=== PATIENT | male | born 1955 | race Hispanic/Latino ===

== ENCOUNTER 2018-08-15 07:45 | Inpatient (IN) | payer OTHER ==
[2018-08-15 07:56] VITALS: BMI 22.8
[2018-08-15] MEDS ORDERED: Heparin25000 units/250ml 1/2NS 25,000 UNITS/250 ML BAG IV STA (08:01)
[2018-08-15 08:04] LABS: BASO # 0.1 K/uL (0.0-0.2); BASO % 0.3 % (0.0-2.0); EOS % 0.1 % (0.0-4.0); HEMOGLOBIN 12.2 g/dL (12.0-18.0); LYMPH % 5.4 % (20.0-40.0); MEAN CELL VOLUME 86.4 fL (80.0-94.0); MEAN CORPUSCULAR HEMOGLOBIN 29.6 pg (27.0-31.0); MEAN CORPUSCULAR HGB CONC 34.2 g/dL (33.0-37.0); MONO # 1.4 K/uL (0.0-0.8); MONO % 7.6 % (0.0-10.0); NEUT # 15.4 K/uL (1.8-7.0); NEUT % 86.6 % (50.0-75.0); PLATELET COUNT 680 K/uL (130-400); RBC 4.14 Mil/uL (4.40-5.90); WHITE BLOOD COUNT 17.8 K/uL (4.8-10.8)
[2018-08-15 08:14] LABS: INR 1.3; PROTHROMBIN TIME 14.1 SECONDS (9.7-12.2)
[2018-08-15 08:19] LABS: ALB/GLOB RATIO 1.5 (1.0-2.1); ALT/SGPT 41 U/L (21-72); AST/SGOT 52 U/L (17-59); BLOOD UREA NITROGEN 11 mg/dL (9-20); CALCIUM 8.6 mg/dl (8.6-10.4); GFR NON-AFRICAN AMERICAN > 60
--- NOTE | 2018-08-15 08:23 | C.PDOC ---
History Of Present Illness 62 year old male with PMHx of HPT and alcohol use was brought in by EMS notification for chest pain. The pt reports 5/10 non-radiating chest pain associated with SOB which started last night. Pt notes pressure to the chest started last night while drinking at a bar, he went to bed and woke up in the morning still with CP which prompted EMS call. EMS states patient took ASA prior to them arriving. EMS [address] elevations in the inferior lead. Pt denies dizziness, sweating, nausea, vomiting, drug use, smoking, and any other associated symptoms. EKG done in the ED with possibly (??) minimal elevations in inferior leads. Dr. Palomares contacted. NO Code Heart at this time. Chief Complaint (Nursing): Chest Pain History Per: Patient History/Exam Limitations: no limitations Onset/Duration Of Symptoms: Hrs Current Symptoms Are (Timing): Still Present Quality: Pressure, "Pain" Associated Symptoms: denies: Nausea, Diaphoresis Recent travel outside of the [place]: No Past Medical History Reviewed: Historical Data, Nursing Documentation, Vital Signs Vital Signs: Last Vital Signs Temp 98.2 F 08/15/18 07:45 Pulse 84 08/15/18 08:03 Resp 22 08/15/18 08:03 BP 121/77 08/15/18 08:03 Pulse Ox 96 08/15/18 08:03 - Medical History PMH: HTN Denies: HIV, Chronic Kidney Disease Surgical History: Endoscopy - [facility] Procedures INTRODUCTION OF SERUM/TOX/VACCINE INTO MUSCLE, PERC APPROACH (08/30/17) TRANSFUSE NONAUT RED BLOOD CELLS IN PERIPH VEIN, PERC (08/30/17) Family History: States: Unknown Family Hx - Social History Hx Alcohol Use: Yes Hx Substance Use: No - Immunization History Hx Tetanus Toxoid Vaccination: No Hx Influenza Vaccination: Yes Hx Pneumococcal Vaccination: Yes Review Of Systems Except As Marked, All Systems Reviewed And Found Negative. Cardiovascular: Positive for: Chest Pain Respiratory: Positive for: Shortness of Breath Gastrointestinal: Negative for: Nausea, Vomiting Musculoskeletal: Positive for: Other Skin: Negative for: Other ((-) diaphoresis. ) Neurological: Negative for: Dizziness Physical Exam - Physical Exam Appears: Well, Non-toxic, No Acute Distress, Other (calm. cooperative. vital signs within normal limits. ) Skin: Warm, Dry, No Diaphoretic Head: Atraumatic, Normacephalic Eye(s): bilateral: Normal Inspection Oral Mucosa: Moist Neck: Normal ROM, Supple Chest: Symmetrical, No Deformity Cardiovascular: Rhythm Regular, No Murmur Respiratory: Normal Breath Sounds, No Rales, No Rhonchi, No Wheezing Gastrointestinal/Abdominal: Normal Exam, Soft, No Tenderness Extremity: Normal ROM (x4), Other ((+) pitting edema. (normal baseline)) Neurological/Psych: Oriented x3, Normal Speech, Normal Cognition ED Course And Treatment - Laboratory Results Result Diagrams: 08/15/18 07:59 08/15/18 07:59 Lab Results: PT 14.1 SECONDS (9.7-12.2) H 08/15/18 07:59 INR 1.3 08/15/18 07:59 APTT 33 SECONDS (21-34) 08/15/18 07:59 Total Bilirubin 0.7 mg/dL (0.2-1.3) 08/15/18 07:59 AST 52 U/L (17-59) 08/15/18 07:59 ALT 41 U/L (21-72) 08/15/18 07:59 Alkaline Phosphatase 112 U/L (38-126) 08/15/18 07:59 Total Protein 6.6 g/dL (6.3-8.3) 08/15/18 07:59 Albumin 4.0 g/dL (3.5-5.0) 08/15/18 07:59 Globulin 2.6 gm/dL (2.2-3.9) 08/15/18 07:59 Albumin/Globulin Ratio 1.5 (1.0-2.1) 08/15/18 07:59 O2 Sat by Pulse Oximetry: 96 (RA) Pulse Ox Interpretation: Normal Medical Decision Making Medical Decision Making: Initial plan: -Blood sent. -EKG -CXR -Brilinta -Heparin Progress/Update: EKG in the ED: very minimal elevated ST elevations on the inferior lead Dr. Palomares contacted for questionable code heart. As per Dr. Palomares no code heart at this time Repeated EKG at 8:07am: Similar findings, no evolution of further EKG changes EKG compared to 2018 EKG, which did not have minimal ST elevations Dr. Palomares contacted again, decision made to call code heart Hospitalist at bedside, pending transport [place] [facility] Disposition Discussed With : Sandra Palomares - Disposition Disposition: HOSPITALIZED Disposition Time: 08:22 Condition: GUARDED - Clinical Impression Clinical Impression: Chest pain, STEMI (ST elevation myocardial infarction) - Scribe Statement The provider has reviewed the documentation as recorded by the Scribe (Danica Dwyer) Provider Attestation: All medical record entries made by the Scribe were at my direction and personally dictated by me. I have reviewed the chart and agree that the record accurately reflects my personal performance of the history, physical exam, medical decision making, and the department course for this patient. I have also personally directed, reviewed, and agree with the discharge instructions and disposition. Decision To Admit - Pt Status Changed To: Hospital Disposition Of: Observation - InPatient: Physician Admission Certification: I certify that this patient requires 2 or mo re midnights of care for the following reason:: STEMI - . Bed Request Type: ICU Admitting Physician: Sandra Palomares Patient Diagnosis: Chest pain, STEMI (ST elevation myocardial infarction)
[2018-08-15 08:28] LABS: B-TYPE NATRIURETIC PEPTIDE 449 pg/mL (0-900); CK-MB 1.37 ng/mL (0.0-3.38)
[2018-08-15] MEDS ORDERED: Sodium Chloride 0.9% 500 ML IV ONE (08:34)
[2018-08-15] MEDS ORDERED: Sodium Chloride 0.9% 500 ML IV SCH (08:45)
--- NOTE | 2018-08-15 08:45 | CP.PCM.PCO ---
Addendum Addendum: 08/15/18 08:41 Patient seen and examined in ER at bedside. Currently waiting for cath team to arrive for transfer Per discussion with patient, patient denies smoking, was at friends house at 8 pm at [place] [employer] drinking alcohol when he noticed that he developed left sided substernal chest pain, walked home with chest pain, went to bed. Someone in family became concerned and called EMS. BIBA. Reports chest pain is decreased. Was given brilinta loading dose and heparin bolus then started on heparin drip in ED. Was given aspirin at home. EKGs en route showed possible inferior wall NC with elevation in 2, 3, and aVF. PMD: Dr. De Oliveira ([facility]) At 8:44 cath team arrived. 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
[2018-08-15 08:56] LABS: ANISOCYTOSIS SLIGHT; BANDS 1 % (0-2); LYMPHOCYTE 5 % (20-40); MONOCYTE 7 % (0-10); NEUTROPHIL 87 % (50-75); PLATELET ESTIMATE INCREASED (NORMAL); TOTAL CELLS COUNTED 100
[2018-08-15 08:57] LABS: HYPOCHROMIC SLIGHT; POLYCHROMIC SLIGHT; TOXIC GRANULATION PRESENT
[2018-08-15 08:59] LABS: LARGE PLATELETS PRESENT
--- NOTE | 2018-08-15 13:36 | RAD ---
Date of service: 08/15/2018 PROCEDURE: CHEST RADIOGRAPH, 1 VIEW HISTORY: chest pain COMPARISON: None available. FINDINGS: LUNGS: Focal opacity at the left lower lung may represent atelectasis or pneumonia. PLEURA: Suspicious for left pleural effusion CARDIOVASCULAR: . Normal. OSSEOUS STRUCTURES: No significant abnormalities. VISUALIZED UPPER ABDOMEN: Normal. OTHER FINDINGS: None. IMPRESSION: Opacity at the left lower lung may represent atelectasis or pneumonia. Suspicious for left pleural effusion.
[2018-08-15] MEDS: Pantoprazole 40 mg EC Tab PO SCH (13:37)
[2018-08-15] MEDS: Albuterol-Ipratrop 3 mg / 0.5 (3 ml) UD INH SCH ×2 (14:19→20:12)
[2018-08-15] MEDS: cefTRIAXone 2 GM in Sodium Chloride 0.9% 100 ML IVPB SCH (15:26)
[2018-08-15] MEDS: Azithromycin 500 MG in Sodium Chloride 0.9% 250 ML IVPB SCH (15:27)
--- NOTE | 2018-08-15 16:17 | CT ---
Date of service: 08/15/2018 PROCEDURE: CT Chest without contrast HISTORY: r/o effusion COMPARISON: None available. TECHNIQUE: Contiguous axial images were obtained through the chest without intravenous contrast enhancement. Sagittal and coronal reconstructions were performed. Radiation dose: Total exam DLP = 502.1 mGy-cm. This CT exam was performed using one or more of the following dose reduction techniques: Automated exposure control, adjustment of the mA and/or kV according to patient size, and/or use of iterative reconstruction technique. FINDINGS: LUNGS: Partial atelectasis of the lower lobes left more than right. Small foci of ground-glass opacities noted in the midportion of the lungs. MEDIASTINUM: The thoracic aorta is ectatic and tortuous. The heart is enlarged. There is moderate to large pericardial effusion. Main pulmonary artery is mildly enlarged. Mild pulmonary vascular congestion is noted. Mildly enlarged mediastinal lymph nodes are noted. No aortic atherosclerotic calcification. PLEURA: Moderate to large left and moderate right pleural effusions are seen. BONES: No fracture. No destructive lesion. UPPER ABDOMEN: Grossly unremarkable. OTHER FINDINGS: None. IMPRESSION: Moderate to large left and moderate right pleural effusions associated with partial atelectasis of the lower lobes larger on the left. Cardiomegaly and moderate to large pericardial effusion. Mild pulmonary vascular congestion.
[2018-08-15] MEDS: Oxycodone/Acetaminophen 5/325 mg Tab PO PRN (19:36)
[2018-08-15] MEDS: Lidocaine 5% Patch TD SCH (19:58)
[2018-08-15 20:40] LABS: ABG ALLEN TEST POS; ARTERIAL BLOOD GAS HCO3 23.3 mmol/L (21-28); ARTERIAL BLOOD GAS HEMOGLOBIN 13.3 g/dL (11.7-17.4); ARTERIAL BLOOD GAS O2 SAT 99.6 % (95-98); ARTERIAL BLOOD GAS PCO2 26 mm/Hg (35-45); ARTERIAL BLOOD GAS PH 7.49 (7.35-7.45); ARTERIAL BLOOD GAS PO2 143 mm/Hg (80-100); ARTERIAL BLOOD GAS TCO2 20.6 mmol/L (22-28)
[2018-08-15 21:04] LABS: BARBITURATES, UR NEGATIVE (NEGATIVE); OPIATES, UR NEGATIVE (NEGATIVE); PHENCYCLIDINE, UR NEGATIVE (NEGATIVE)
[2018-08-15 21:09] LABS: BENZODIAZEPINES, UR POSITIVE (NEGATIVE)
[2018-08-16] MEDS: Albuterol-Ipratrop 3 mg / 0.5 (3 ml) UD INH SCH ×4 (02:20→19:30)
[2018-08-16 06:19] LABS: BASO % 0.3 % (0.0-2.0); EOS % 0.1 % (0.0-4.0); LYMPH % 7.6 % (20.0-40.0); MEAN CELL VOLUME 87.6 fL (80.0-94.0); MEAN CORPUSCULAR HEMOGLOBIN 28.9 pg (27.0-31.0); MEAN PLATELET VOLUME 6.1 fL (7.2-11.7); MONO # 1.3 K/uL (0.0-0.8); MONO % 10.1 % (0.0-10.0); NEUT # 10.9 K/uL (1.8-7.0); NEUT % 81.9 % (50.0-75.0); NRBC % 0.1 % (0.0-2.0); PLATELET COUNT 526 K/uL (130-400); RBC 4.14 Mil/uL (4.40-5.90); RED CELL DISTRIBUTION WIDTH 13.9 % (11.5-14.5); WHITE BLOOD COUNT 13.3 K/uL (4.8-10.8)
[2018-08-16 06:37] LABS: ALB/GLOB RATIO 1.3 (1.0-2.1); ALBUMIN 3.6 g/dL (3.5-5.0); ALT/SGPT 21 U/L (21-72); AST/SGOT 51 U/L (17-59); BLOOD UREA NITROGEN 12 mg/dL (9-20); CALCIUM 8.6 mg/dl (8.6-10.4); GFR NON-AFRICAN AMERICAN > 60
[2018-08-16 08:44] LABS: LYMPHOCYTE 6 % (20-40); MONOCYTE 11 % (0-10); NEUTROPHIL 83 % (50-75); PLATELET ESTIMATE INCREASED (NORMAL); TOTAL CELLS COUNTED 100
[2018-08-16 08:45] LABS: ANISOCYTOSIS SLIGHT; GIANT PLATELETS PRESENT; HYPOCHROMIC SLIGHT; LARGE PLATELETS PRESENT; POLYCHROMIC SLIGHT
[2018-08-16 08:46] LABS: BURR CELLS SLIGHT; POIKILOCYTOSIS SLIGHT
[2018-08-16] MEDS: cefTRIAXone 2 GM in Sodium Chloride 0.9% 100 ML IVPB SCH (09:00)
[2018-08-16] MEDS: Pantoprazole 40 mg EC Tab PO SCH (09:51)
[2018-08-16] MEDS: Lidocaine 5% Patch TD SCH (09:51)
[2018-08-16] MEDS: Enoxaparin 30 mg Syringe SC SCH (09:51)
--- NOTE | 2018-08-16 11:28 | CP.PCM.HP ---
History of Present Illness - History of Present Illness History of Present Illness: pt came in for chest pain sob st elevation inf leads has pnumonia and pleural efusion Present on Admission - Present on Admission Any Indicators Present on Admission: No Review of Systems - Review of Systems Systems not reviewed;Unavailable: Acuity of Condition - Constitutional Constitutional: As Per HPI - EENT Eyes: As Per HPI Ears: As Per HPI Nose/Mouth/Throat: As Per HPI - Cardiovascular Cardiovascular: Chest Pain, Chest Pain at Rest, Dyspnea, Leg Edema - Respiratory Respiratory: Dyspnea - Gastrointestinal Gastrointestinal: Heartburn Additional comments: had hx of oesophogeal bleeding befor - Genitourinary Genitourinary: As Per HPI - Reproductive: Male Reproductive:Male: As Per HPI - Musculoskeletal Musculoskeletal: As Per HPI - Integumentary Integumentary: As Per HPI - Neurological Neurological: As Per HPI - Psychiatric Psychiatric: As Per HPI - Endocrine Endocrine: As Per HPI - Hematologic/Lymphatic Hematologic: As Per HPI Past Patient History - Past Medical History & Family History Past Medical History?: Yes - Past Social History Smoking Status: Never Smoked - CARDIAC Hx Hypertension: Yes - PULMONARY Hx Respiratory Disorders: No - NEUROLOGICAL Hx Neurological Disorder: No HX Cerebrovascular Accident: No Hx Syncope: Yes Hx Transient Ischemic Attacks (TIA): No - HEENT Hx HEENT Problems: No - RENAL Hx Chronic Kidney Disease: No - ENDOCRINE/METABOLIC Hx Endocrine Disorders: No - HEMATOLOGICAL/ONCOLOGICAL Hx Anemia: Yes Hx Blood Transfusions: Yes Hx Blood Transfusion Reaction: No Hx Human Immunodeficiency Virus (HIV): No - INTEGUMENTARY Hx Dermatological Problems: No - MUSCULOSKELETAL/RHEUMATOLOGICAL Hx Falls: No - GASTROINTESTINAL Hx Gastrointestinal Disorders: No Hx Gastroesophageal Reflux: Yes Other/Comment: Hx Esophagitis - GENITOURINARY/GYNECOLOGICAL Hx Genitourinary Disorders: No Other/Comment: Hx CKD - PSYCHIATRIC Hx Psychophysiologic Disorder: No Hx Substance Use: No - SURGICAL HISTORY Hx Surgeries: No Hx Appendectomy: Yes Other/Comment: Endoscopy - ANESTHESIA Hx Anesthesia: Yes Hx Anesthesia Reactions: No Hx Malignant Hyperthermia: No Meds Allergies/Adverse Reactions: Allergies Allergy/AdvReac Type Severity Reaction Status Date / Time No Known Allergies Allergy Verified 08/15/18 07:55 Physical Exam - Constitutional Appears: Non-toxic - Head Exam Head Exam: ATRAUMATIC - Eye Exam Eye Exam: Normal appearance Pupil Exam: NORMAL ACCOMODATION, PERRL - ENT Exam ENT Exam: Mucous Membranes Moist - Neck Exam Neck exam: Positive for: Normal Inspection - Respiratory Exam Respiratory Exam: Decreased Breath Sounds - Cardiovascular Exam Cardiovascular Exam: REGULAR RHYTHM - GI/Abdominal Exam GI & Abdominal Exam: Normal Bowel Sounds - Rectal Exam Rectal Exam: Deferred - Exam Exam: NORMAL INSPECTION - Extremities Exam Additional comments: quintin islas red warm - Back Exam Back exam: NORMAL INSPECTION - Neurological Exam Neurological exam: Alert, Normal Gait, Oriented x3 - Psychiatric Exam Psychiatric exam: Normal Mood - Skin Skin Exam: Normal Color Results - Vital Signs Recent Vital Signs: Last Vital Signs Temp 98 F 08/16/18 04:00 Pulse 75 08/16/18 04:51 Resp 12 08/16/18 04:00 BP 118/77 08/16/18 03:55 Pulse Ox 100 08/16/18 04:00 - Labs Result Diagrams: 08/16/18 06:13 08/16/18 06:13 Labs: Laboratory Results - last 24 hr 08/15/18 08/15/18 08/16/18 20:35 20:40 06:13 WBC 13.3 H RBC 4.14 L Hgb 12.0 Hct 36.3 MCV 87.6 MCH 28.9 MCHC 33.0 RDW 13.9 Plt Count 526 H D MPV 6.1 L Neut % (Auto) 81.9 H Lymph % (Auto) 7.6 L [place] % (Auto) 10.1 H Eos % (Auto) 0.1 Baso % (Auto) 0.3 Neut # (Auto) 10.9 H Lymph # (Auto) 1.0 [place] # (Auto) 1.3 H Eos # (Auto) 0.0 Baso # (Auto) 0.0 Neutrophils % (Manual) 83 H Lymphocytes % (Manual) 6 L Monocytes % (Manual) 11 H Platelet Estimate Increased H Large Platelets Present Giant Platelets Present Polychromasia Slight Hypochromasia (manual) Slight Poikilocytosis (manual Slight Anisocytosis (manual) Slight [place] Cells Slight Puncture Site Rradial pCO2 26 L pO2 143 H HCO3 23.3 ABG pH 7.49 H ABG Total CO2 20.6 L ABG O2 Saturation 99.6 H ABG Base Excess -2.1 L ABG Hemoglobin 13.3 ABG Carboxyhemoglobin 1.6 H POC ABG HHb (Measured) 0.4 ABG Methemoglobin 0.7 Lam Test Pos A-a O2 Difference 181.0 Respiratory Index 1.3 Hgb O2 Saturation 97.3 Vent Mode Bipap Mechanical Rate 8 FiO2 50.0 Inspiratory BiPAP 12 Expiratory BiPAP 6 Sodium Potassium Chloride Carbon Dioxide Anion Gap BUN Creatinine Est GFR ( Amer) Est GFR (Non-Af Amer) Random Glucose Calcium Phosphorus Magnesium Total Bilirubin AST ALT Alkaline Phosphatase Total Protein Albumin Globulin Albumin/Globulin Ratio Urine Opiates Screen Negative Urine Methadone Screen Negative Ur Barbiturates Screen Negative Ur Phencyclidine Scrn Negative Ur Amphetamines Screen Negative U Benzodiazepines Scrn Positive U Oth Cocaine Metabols Negative U Cannabinoids Screen Negative 08/16/18 06:13 WBC RBC Hgb Hct MCV MCH MCHC RDW Plt Count MPV Neut % (Auto) Lymph % (Auto) [place] % (Auto) Eos % (Auto) Baso % (Auto) Neut # (Auto) Lymph # (Auto) [place] # (Auto) Eos # (Auto) Baso # (Auto) Neutrophils % (Manual) Lymphocytes % (Manual) Monocytes % (Manual) Platelet Estimate Large Platelets Giant Platelets Polychromasia Hypochromasia (manual) Poikilocytosis (manual Anisocytosis (manual) [place] Cells Puncture Site pCO2 pO2 HCO3 ABG pH ABG Total CO2 ABG O2 Saturation ABG Base Excess ABG Hemoglobin ABG Carboxyhemoglobin POC ABG HHb (Measured) ABG Methemoglobin Lam Test A-a O2 Difference Respiratory Index Hgb O2 Saturation Vent Mode Mechanical Rate FiO2 Inspiratory BiPAP Expiratory BiPAP Sodium 125 L Potassium 4.4 Chloride 93 L Carbon Dioxide 21 L Anion Gap 16 BUN 12 Creatinine 0.5 L Est GFR ( Amer) > 60 Est GFR (Non-Af Amer) > 60 Random Glucose 105 D Calcium 8.6 Phosphorus 3.1 Magnesium 2.2 Total Bilirubin 0.6 AST 51 ALT 21 D Alkaline Phosphatase 90 Total Protein 6.3 Albumin 3.6 Globulin 2.7 Albumin/Globulin Ratio 1.3 Urine Opiates Screen Urine Methadone Screen Ur Barbiturates Screen Ur Phencyclidine Scrn Ur Amphetamines Screen U Benzodiazepines Scrn U Oth Cocaine Metabols U Cannabinoids Screen Assessment & Plan - Assessment and Plan (Free Text) Assessment: ac chest pain st elevation r/o cad ac pnumonia pleural efusion atelectasis hx of htn alc abuse Plan: as ordered - Date & Time Date: 08/16/18 Time: 11:34
--- NOTE | 2018-08-16 11:45 | CP.PCM.CON ---
History of Present Illness - History of Present Illness History of Present Illness: Pulmonary Consult Indication: pleural effusions bilaterally The Patient was seen and examined at the bedside, Medical records reviewed, and management issues were discussed and formulated with the house staff. Events reviewed Patient is 62 years old male with past medical history of hypertension and alcohol abuse who was brought into the emergency room yesterday morning for chest pain patient described the pain to be sharp nonradiating pressure-like and associated with worsening shortness of breath, EKG reviewed and no code heart indicated at that time. EKG reveal any ST elevation and a chest x-ray consistent with large to moderate sized pleural effusion. Patient was admitted to the telemetry with chest pain rule out acute myocardial infarction. Pulmonary consult was called in for respiratory distress, dyspnea. Patient also has low-grade fever pancultured was sent, and he was started on IV antibiotic with ceftriaxone and Rocephin Patient was placed on BiPAP, received IV Lasix and he is starting to feel be tter. Patient feeling better today, alert awake oriented, denies chest pain at this time 08/15/2018: CT Chest without contrast LUNGS: Partial atelectasis of the lower lobes left more than right. Small foci of ground-glass opacities noted in the midportion of the lungs. MEDIASTINUM: The thoracic aorta is ectatic and tortuous. The heart is enlarged. There is moderate to large pericardial effusion. Main pulmonary artery is mildly enlarged. Mild pulmonary vascular congestion is noted. Mildly enlarged mediastinal lymph nodes are noted. No aortic atherosclerotic calcification. PLEURA: Moderate to large left and moderate right pleural effusions are seen. BONES: No fracture. No destructive lesion. UPPER ABDOMEN: Grossly unremarkable. IMPRESSION: Moderate to large left and moderate right pleural effusions associated with partial atelectasis of the lower lobes larger on the left. Cardiomegaly and moderate to large pericardial effusion. Mild pulmonary vascular congestion. Review of Systems - Constitutional Constitutional: As Per HPI, Fever. absent: Chills, Daytime Sleepiness, Fatigue - EENT Nose/Mouth/Throat: absent: Epistaxis, Nasal Congestion - Cardiovascular Cardiovascular: Chest Pain, Chest Pain with Activity, Dyspnea, Dyspnea on Exertion, Edema. absent: Acrocyanosis, Chest Pain at Rest, Claudication - Respiratory Respiratory: Cough, Dyspnea, Dyspnea on Exertion. absent: Hemoptysis, Wheezing, Snoring - Gastrointestinal Gastrointestinal: absent: Abdominal Pain - Neurological Neurological: absent: Focal Weakness, Frequent Falls, Headaches, Lack of Coordination Past Patient History - Past Medical History & Family History Past Medical History?: Yes - Past Social History Smoking Status: Never Smoked - CARDIAC Hx Hypertension: Yes - PULMONARY Hx Respiratory Disorders: No - NEUROLOGICAL Hx Neurological Disorder: No HX Cerebrovascular Accident: No Hx Syncope: Yes Hx Transient Ischemic Attacks (TIA): No - HEENT Hx HEENT Problems: No - RENAL Hx Chronic Kidney Disease: No - ENDOCRINE/METABOLIC Hx Endocrine Disorders: No - HEMATOLOGICAL/ONCOLOGICAL Hx Anemia: Yes Hx Blood Transfusions: Yes Hx Blood Transfusion Reaction: No Hx Human Immunodeficiency Virus (HIV): No - INTEGUMENTARY Hx Dermatological Problems: No - MUSCULOSKELETAL/RHEUMATOLOGICAL Hx Falls: No - GASTROINTESTINAL Hx Gastrointestinal Disorders: No Hx Gastroesophageal Reflux: Yes Other/Comment: Hx Esophagitis - GENITOURINARY/GYNECOLOGICAL Hx Genitourinary Disorders: No Other/Comment: Hx CKD - PSYCHIATRIC Hx Psychophysiologic Disorder: No Hx Substance Use: No - SURGICAL HISTORY Hx Surgeries: No Hx Appendectomy: Yes Other/Comment: Endoscopy - ANESTHESIA Hx Anesthesia: Yes Hx Anesthesia Reactions: No Hx Malignant Hyperthermia: No Meds Allergies/Adverse Reactions: Allergies Allergy/AdvReac Type Severity Reaction Status Date / Time No Known Allergies Allergy Verified 08/15/18 07:55 - Medications Medications: Current Medications Albuterol/Ipratropium (Duoneb 3 Mg/0.5 Mg (3 Ml) Ud) 3 ml INH RQ6 PATRICIA Last Admin: 08/16/18 02:20 Dose: 3 ml Amlodipine Besylate (Norvasc) 10 mg PO DAILY PATR[facility]IA Last Admin: 08/16/18 09:51 Dose: 10 mg Enoxaparin Sodium (Lovenox) 30 mg SC DAILY [facility]IA Last Admin: 08/16/18 09:51 Dose: 30 mg Azithromycin 500 mg/ Sodium (Chloride) 250 mls @ 250 mls/hr IVPB Q24H PATRICIA; Protocol Last Admin: 08/15/18 15:27 Dose: 250 mls/hr Ceftriaxone Sodium 2 gm/ (Sodium Chloride) 100 mls @ 100 mls/hr IVPB DAILY PATRICIA; Protocol Last Admin: 08/16/18 09:00 Dose: 100 mls/hr Lidocaine (Lidoderm) 1 ea TD DAILY PATR[facility]IA Last Admin: 08/16/18 09:51 Dose: 1 ea Losartan Potassium (Cozaar) 100 mg PO DAILY [facility] Last Admin: 08/16/18 09:51 Dose: 100 mg Oxycodone/Acetaminophen (Percocet 5/325 Mg Tab) 1 tab PO Q6H PRN PRN Reason: Pain, moderate (4-7) Stop: 08/18/18 19:17 Last Admin: 08/15/18 19:36 Dose: 1 tab Pantoprazole Sodium (Protonix Ec Tab) 40 mg PO DAILY [facility] Last Admin: 08/16/18 09:51 Dose: 40 mg Physical Exam - Constitutional Appears: Well - Head Exam Head Exam: ATRAUMATIC, NORMAL INSPECTION - Eye Exam Eye Exam: EOMI, Normal appearance, PERRL. absent: Conjunctival injection Pupil Exam: NORMAL ACCOMODATION, PERRL - ENT Exam ENT Exam: Mucous Membranes Moist, Normal Exam - Neck Exam Neck exam: Positive for: Normal Inspection - Respiratory Exam Respiratory Exam: Decreased Breath Sounds, Prolonged Expiratory Phase, Rales, Rhonchi. absent: Accessory Muscle Use, Chest Wall Tenderness, Clear to Auscultation Bilateral, Wheezes - Cardiovascular Exam Cardiovascular Exam: REGULAR RHYTHM, +S1, +S2. absent: Bradycardia, Tachycardia, Clicks, Diastolic murmur, Gallop, JVD - GI/Abdominal Exam GI & Abdominal Exam: Distended, Normal Bowel Sounds, Soft. absent: Diminished Bowel Sounds, Firm, Guarding - Back Exam Back exam: absent: CVA tenderness (L), CVA tenderness (R) - Neurological Exam Neurological exam: Alert, CN II-XII Intact, Oriented x3, Reflexes Normal Results - Vital Signs Recent Vital Signs: Last Vital Signs Temp 98 F 08/16/18 04:00 Pulse 75 08/16/18 04:51 Resp 12 08/16/18 04:00 BP 118/77 08/16/18 03:55 Pulse Ox 100 08/16/18 04:00 - Labs Result Diagrams: 08/16/18 06:13 08/16/18 06:13 Labs: Laboratory Results - last 24 hr 08/15/18 08/15/18 08/16/18 20:35 20:40 06:13 WBC 13.3 H RBC 4.14 L Hgb 12.0 Hct 36.3 MCV 87.6 MCH 28.9 MCHC 33.0 RDW 13.9 Plt Count 526 H D MPV 6.1 L Neut % (Auto) 81.9 H Lymph % (Auto) 7.6 L Major % (Auto) 10.1 H Eos % (Auto) 0.1 Baso % (Auto) 0.3 Neut # (Auto) 10.9 H Lymph # (Auto) 1.0 Major # (Auto) 1.3 H Eos # (Auto) 0.0 Baso # (Auto) 0.0 Neutrophils % (Manual) 83 H Lymphocytes % (Manual) 6 L Monocytes % (Manual) 11 H Platelet Estimate Increased H Large Platelets Present Giant Platelets Present Polychromasia Slight Hypochromasia (manual) Slight Poikilocytosis (manual Slight Anisocytosis (manual) Slight Timothy Cells Slight Puncture Site Rradial pCO2 26 L pO2 143 H HCO3 23.3 ABG pH 7.49 H ABG Total CO2 20.6 L ABG O2 Saturation 99.6 H ABG Base Excess -2.1 L ABG Hemoglobin 13.3 ABG Carboxyhemoglobin 1.6 H POC ABG HHb (Measured) 0.4 ABG Methemoglobin 0.7 Lam Test Pos A-a O2 Difference 181.0 Respiratory Index 1.3 Hgb O2 Saturation 97.3 Vent Mode Bipap Mechanical Rate 8 FiO2 50.0 Inspiratory BiPAP 12 Expiratory BiPAP 6 Sodium Potassium Chloride Carbon Dioxide Anion Gap BUN Creatinine Est GFR ( Amer) Est GFR (Non-Af Amer) Random Glucose Calcium Phosphorus Magnesium Total Bilirubin AST ALT Alkaline Phosphatase Total Protein Albumin Globulin Albumin/Globulin Ratio Urine Opiates Screen Negative Urine Methadone Screen Negative Ur Barbiturates Screen Negative Ur Phencyclidine Scrn Negative Ur Amphetamines Screen Negative U Benzodiazepines Scrn Positive U Oth Cocaine Metabols Negative U Cannabinoids Screen Negative 08/16/18 06:13 WBC RBC Hgb Hct MCV MCH MCHC RDW Plt Count MPV Neut % (Auto) Lymph % (Auto) Major % (Auto) Eos % (Auto) Baso % (Auto) Neut # (Auto) Lymph # (Auto) Major # (Auto) Eos # (Auto) Baso # (Auto) Neutrophils % (Manual) Lymphocytes % (Manual) Monocytes % (Manual) Platelet Estimate Large Platelets Giant Platelets Polychromasia Hypochromasia (manual) Poikilocytosis (manual Anisocytosis (manual) [place] Cells Puncture Site pCO2 pO2 HCO3 ABG pH ABG Total CO2 ABG O2 Saturation ABG Base Excess ABG Hemoglobin ABG Carboxyhemoglobin POC ABG HHb (Measured) ABG Methemoglobin Lam Test A-a O2 Difference Respiratory Index Hgb O2 Saturation Vent Mode Mechanical Rate FiO2 Inspiratory BiPAP Expiratory BiPAP Sodium 125 L Potassium 4.4 Chloride 93 L Carbon Dioxide 21 L Anion Gap 16 BUN 12 Creatinine 0.5 L Est GFR ( Amer) > 60 Est GFR (Non-Af Amer) > 60 Random Glucose 105 D Calcium 8.6 Phosphorus 3.1 Magnesium 2.2 Total Bilirubin 0.6 AST 51 ALT 21 D Alkaline Phosphatase 90 Total Protein 6.3 Albumin 3.6 Globulin 2.7 Albumin/Globulin Ratio 1.3 Urine Opiates Screen Urine Methadone Screen Ur Barbiturates Screen Ur Phencyclidine Scrn Ur Amphetamines Screen U Benzodiazepines Scrn U Oth Cocaine Metabols U Cannabinoids Screen Assessment & Plan (1) Pleural effusion associated with pulmonary infection Status: Acute Priority: High (2) Fluid overload Status: Acute Priority: High (3) STEMI (ST elevation myocardial infarction) Status: Acute Priority: High (4) Alcohol abuse with intoxication Status: Acute Priority: High - Assessment and Plan (Free Text) Assessment: Patient admitted to the telemetry with chest pain, possible secondary to acute pulmonary infection Pulmonary consult was called for acute respiratory insufficiency likely multifactorial from acute pulmonary edema, congestive heart heart failure, pleural effusion more on the left side could be associated with pulmonary infection Chest x-ray and CAT scan consistent with pulmonary vascular congestion and bilateral pleural effusion Physical exam with rales and peripheral edema Patient is status post IV Lasix and placed on BiPAP last night, patient is much more comfortable now interventional radiology was consulted, highly suggest therapeutic and diagnostic thoracentesis, recommend to continue gentle diuresis and daily weight Supplemental oxygen was 2 L nasal cannula to maintain oxygen saturation above 94% during the day and we can decrease the BiPAP to only nocturnal BiPAP for now Agree with continuing the IV antibiotic with Rocephin and ceftriaxone for now, patient has been afebrile over the last 24 hours with T-max of 100.4 2 sets of peripheral blood culture sent yesterday negative for 24 hours continue bronchodilator nebulizer
[2018-08-16] MEDS: Azithromycin 500 MG in Sodium Chloride 0.9% 250 ML IVPB SCH (15:00)
[2018-08-17] MEDS: Albuterol-Ipratrop 3 mg / 0.5 (3 ml) UD INH SCH ×4 (02:41→19:25)
[2018-08-17] MEDS: Oxycodone/Acetaminophen 5/325 mg Tab PO PRN (03:45)
--- NOTE | 2018-08-17 06:55 | CON ---
DATE: 08/16/2018 CARDIOLOGY CONSULT REASON FOR CONSULTATION: Chest pain and shortness of breath. HISTORY OF PRESENT ILLNESS: The patient is a 62-year-old male who was diagnosed recently with hypertension and was placed on amlodipine and Cozaar. The patient has no known prior cardiac history. He presented because of chest pain and shortness of breath as well as worsening of his leg swelling after drinking heavily. The patient on presentation had subtle inferior ST elevation and code heart was activated. Coronary angiography was normal. Left ventriculogram revealed mild apical hypokinesis. The patient was admitted subsequently to CCU. At this time, the patient denies any chest pain. The patient is unaware of any history of gallstones in the past or history of DVT. SOCIAL HISTORY: The patient is smoker, drinker. He works with [employer]. MEDICATIONS: Current medications are Zithromax at 100 mg daily, Rocephin 2 g intravenously daily, Cozaar at 100 mg daily, Lovenox 30 mg once a day, Protonix 40 mg p.o. daily, Norvasc 10 mg daily. REVIEW OF SYSTEMS: No nausea or vomiting. No fever or chills. PHYSICAL EXAMINATION: GENERAL: The patient is a middle-aged male who does not appear to be in acute distress. VITAL SIGNS: Blood pressure 135/82, heart rate 77, temperature 97.3, respirations 20. HEENT: Normocephalic. CHEST: Absent breath sounds over the bases and bilateral rhonchi. HEART: S1, S2, regular. No gallop or rub. ABDOMEN: Soft. EXTREMITIES: 2+ pitting edema. IMAGING: Chest x-ray revealed borderline cardiomegaly and left lower lobe infiltrates and effusion. Chest CT scan without contrast revealed moderate to large left and moderate right pleural effusion associated with partial atelectasis of the lower lobes, larger on the left. Cardiomegaly and moderate to large pericardial effusion. Mild pulmonary vascular congestion. LABORATORY DATA: Drug screen is positive for benzodiazepines. Alcohol level was 85 on admission. Today's SMA-7: Sodium 125, potassium 4.4, chloride 93, CO2 of 21, glucose 105, BUN 12, creatinine 0.5. Onset of troponin is negative. Today's hemoglobin and hematocrit of 12 and 36.3, white count 15.3, platelet count 526,000. ASSESSMENT: 1. Left lower lobe pneumonia and bilateral pleural effusion. 2. Moderate to large pericardial effusion. Consider underlying pericarditis and rule out cardiac tamponade. 3. Rule out deep venous thrombosis. 4. Hypertension. 5. Ethanol abuse. RECOMMENDATIONS: Continue current IV Zithromax and IV Rocephin. Continue Cozaar at 100 mg once a day, Lovenox at 30 mg once a day, Norvasc 10 mg once a day. Echocardiographic study is scheduled for tomorrow, and I did request venous Doppler of the lower extremities in the meantime. Kamari Jalloh MD
--- NOTE | 2018-08-17 09:23 | CP.PCM.PN ---
Subjective - Date & Time of Evaluation Date of Evaluation: 08/17/18 Time of Evaluation: 09:17 - Subjective Subjective: Pulm Progress Note for Dr. Abraham's service S/E at bedside. Reports sob but mildly improved from prior. No other complaints at this time. Objective - Vital Signs/Intake and Output Vital Signs (last 24 hours): Temp Pulse Resp BP Pulse Ox 98.4 F 84 28 H 111/73 100 08/16/18 20:00 08/16/18 20:00 08/16/18 20:00 08/16/18 19:55 08/16/18 20:00 - Medications Medications: Current Medications Albuterol/Ipratropium (Duoneb 3 Mg/0.5 Mg (3 Ml) Ud) 3 ml INH RQ6 PATRICIA Last Admin: 08/17/18 08:33 Dose: 3 ml Amlodipine Besylate (Norvasc) 10 mg PO DAILY [facility] Last Admin: 08/16/18 09:51 Dose: 10 mg Enoxaparin Sodium (Lovenox) 30 mg SC DAILY [facility] Last Admin: 08/16/18 09:51 Dose: 30 mg Azithromycin 500 mg/ Sodium (Chloride) 250 mls @ 250 mls/hr IVPB Q24H PATRICIA; Protocol Last Admin: 08/16/18 15:00 Dose: 250 mls/hr Ceftriaxone Sodium 2 gm/ (Sodium Chloride) 100 mls @ 100 mls/hr IVPB DAILY [facility]; Protocol Last Admin: 08/16/18 09:00 Dose: 100 mls/hr Lidocaine (Lidoderm) 1 ea TD DAILY [facility] Last Admin: 08/16/18 09:51 Dose: 1 ea Losartan Potassium (Cozaar) 100 mg PO DAILY [facility] Last Admin: 08/16/18 09:51 Dose: 100 mg Mupirocin (Bactroban Ointment) 0 gm TOP BID [facility] Last Admin: 08/16/18 18:00 Dose: 1 oin Oxycodone/Acetaminophen (Percocet 5/325 Mg Tab) 1 tab PO Q6H PRN PRN Reason: Pain, moderate (4-7) Stop: 08/18/18 19:17 Last Admin: 08/17/18 03:45 Dose: 1 tab Pantoprazole Sodium (Protonix Ec Tab) 40 mg PO DAILY [facility] Last Admin: 08/16/18 09:51 Dose: 40 mg - Labs Labs: 08/16/18 06:13 08/16/18 06:13 PT 14.1 SECONDS (9.7-12.2) H 08/15/18 07:59 INR 1.3 08/15/18 07:59 APTT 33 SECONDS (21-34) 08/15/18 07:59 - Constitutional Appears: Non-toxic, No Acute Distress - Head Exam Head Exam: NORMAL INSPECTION - Eye Exam Eye Exam: EOMI, Normal appearance - ENT Exam ENT Exam: Mucous Membranes Dry - Respiratory Exam Respiratory Exam: Decreased Breath Sounds, Rales, NORMAL BREATHING PATTERN. absent: Respiratory Distress - Cardiovascular Exam Cardiovascular Exam: REGULAR RHYTHM, +S1, +S2. absent: JVD Additional comments: orthopnea - GI/Abdominal Exam GI & Abdominal Exam: Distended, Soft, Normal Bowel Sounds. absent: Tenderness - Extremities Exam Extremities Exam: Pedal Edema. absent: Calf Tenderness - Neurological Exam Neurological Exam: Alert, Awake, Oriented x3 - Psychiatric Exam Psychiatric exam: Normal Affect, Normal Mood - Skin Skin Exam: Dry, Intact, Normal Color Assessment and Plan - Assessment and Plan (Free Text) Assessment: 62 yo male with pleural effusions. Pulm consulted for sob 2/2 pleural effusions Plan: Assessment Pleural Effusions Plan Chest CT shows moderate sized pleural effusions bilaterally; cardiomegaly with pericardial effusion IR consulted for possible thoracentesis with fluid studies Continue IV abx as patient had recent pna like symptoms Pending Echo and venous doppler studies Lasix as per ICU/cardiology team Continue breathing treatments and oxygen support as needed
[2018-08-17] MEDS: cefTRIAXone 2 GM in Sodium Chloride 0.9% 100 ML IVPB SCH (09:41)
[2018-08-17] MEDS: Pantoprazole 40 mg EC Tab PO SCH (09:41)
[2018-08-17] MEDS: Lidocaine 5% Patch TD SCH (09:42)
[2018-08-17] MEDS: Enoxaparin 30 mg Syringe SC SCH (10:00)
--- NOTE | 2018-08-17 13:55 | CARD ---
APPROVED REPORT Date of service: 08/17/2018 EXAM: Two-dimensional and M-mode echocardiogram with Doppler and color Doppler. Other Information Quality : GoodRhythm : INDICATION Dyspnea Peripheral Edema Pleural Effusion Syncope STEMI RISK FACTORS Hypertension 2D DIMENSIONS IVSd1.0 (0.7-1.1cm)LVDd5.3 (3.9-5.9cm) PWd1.0 (0.7-1.1cm)LA [id number] (18-58mL) LVDs3.7 (2.5-4.0cm)FS (%) 30.6 % LVEF (%)57.7 (>50%)LVEF (Delgadillo's)56.49 % M-Mode DIMENSIONS Left Atrium (MM)3.67 (2.5-4.0cm)IVSd1.00 (0.7-1.1cm) Aortic Root3.61 (2.2-3.7cm)LVDd6.06 (4.0-5.6cm) Aortic Cusp Exc.2.33 (1.5-2.0cm)PWd0.81 (0.7-1.1cm) FS (%) 37 %LVDs3.80 (2.0-3.8cm) Mitral Valve MV E Tmghysvd93.0cm/sMV A Dmtpphlp46.8cm/sE/A ratio1.1 TDI Lateral E' Peak V12.74cm/sMedial E' Peak V8.33cm/sE/Lateral E'5.5 E/Medial E'8.4 Tricuspid Valve TR Peak Nfipgchb916gr/sTR Peak Gr.[id number] LEFT VENTRICLE The left ventricle is normal size. There is normal left ventricular wall thickness. The left ventricular function is normal. The left ventricular ejection fraction is within the normal range. There is normal LV segmental wall motion. Transmitral Doppler flow pattern is abnormal. RIGHT VENTRICLE The right ventricle is normal size. There is normal right ventricular wall thickness. The right ventricular systolic function is normal. ATRIA The left atrium size is normal. The right atrium size is normal. AORTIC VALVE The aortic valve is mildly thickened. No aortic regurgitation is present. There is no aortic valvular stenosis. MITRAL VALVE The mitral valve is mildly thickened. There is no mitral valve stenosis. There is no mitral valve regurgitation noted. TRICUSPID VALVE There is mild tricuspid regurgitation. There is mild pulmonary hypertension. PULMONIC VALVE There is mild pulmonic valvular regurgitation. GREAT VESSELS The aortic root is normal in size. The IVC is normal in size and collapses >50% with inspiration. PERICARDIAL EFFUSION There is a small circumferential pericardial effusion. There is moderate left pleural effusion. <Conclusion> The left ventricle is normal size. There is normal left ventricular wall thickness. The left ventricular function is normal. The left ventricular ejection fraction is within the normal range. There is normal LV segmental wall motion. Transmitral Doppler flow pattern is abnormal. There is mild tricuspid regurgitation. There is mild pulmonary hypertension. There is mild pulmonic valvular regurgitation. There is a small circumferential pericardial effusion. There is moderate left pleural effusion.
[2018-08-17] MEDS: Azithromycin 500 MG in Sodium Chloride 0.9% 250 ML IVPB SCH (15:11)
--- NOTE | 2018-08-17 17:14 | CP.PCM.PN ---
Subjective - Date & Time of Evaluation Date of Evaluation: 08/17/18 Time of Evaluation: 17:12 - Subjective Subjective: no chest pain still sob Objective - Vital Signs/Intake and Output Vital Signs (last 24 hours): Temp Pulse Resp BP Pulse Ox 98.9 F 85 18 132/87 100 08/17/18 12:00 08/17/18 12:00 08/17/18 12:00 08/17/18 12:00 08/17/18 12:00 - Medications Medications: Current Medications Albuterol/Ipratropium (Duoneb 3 Mg/0.5 Mg (3 Ml) Ud) 3 ml INH RQ6 PATRICIA Last Admin: 08/17/18 13:50 Dose: 3 ml Amlodipine Besylate (Norvasc) 10 mg PO DAILY [facility] Last Admin: 08/17/18 09:40 Dose: 10 mg Enoxaparin Sodium (Lovenox) 30 mg SC DAILY [facility] Last Admin: 08/17/18 10:00 Dose: Not Given Azithromycin 500 mg/ Sodium (Chloride) 250 mls @ 250 mls/hr IVPB Q24H PATRICIA; Protocol Last Admin: 08/17/18 15:11 Dose: 250 mls/hr Ceftriaxone Sodium 2 gm/ (Sodium Chloride) 100 mls @ 100 mls/hr IVPB DAILY PATR[facility]IA; Protocol Last Admin: 08/17/18 09:41 Dose: 100 mls/hr Lidocaine (Lidoderm) 1 ea TD DAILY [facility] Last Admin: 08/17/18 09:42 Dose: 1 ea Losartan Potassium (Cozaar) 100 mg PO DAILY [facility] Last Admin: 08/17/18 09:40 Dose: 100 mg Mupirocin (Bactroban Ointment) 0 gm TOP BID [facility] Last Admin: 08/17/18 11:30 Dose: 1 oin Oxycodone/Acetaminophen (Percocet 5/325 Mg Tab) 1 tab PO Q6H PRN PRN Reason: Pain, moderate (4-7) Stop: 08/18/18 19:17 Last Admin: 08/17/18 03:45 Dose: 1 tab Pantoprazole Sodium (Protonix Ec Tab) 40 mg PO DAILY [facility] Last Admin: 08/17/18 09:41 Dose: 40 mg - Labs Labs: 08/16/18 06:13 08/16/18 06:13 PT 14.1 SECONDS (9.7-12.2) H 08/15/18 07:59 INR 1.3 08/15/18 07:59 APTT 33 SECONDS (21-34) 08/15/18 07:59 - Constitutional Appears: Non-toxic - Head Exam Head Exam: ATRAUMATIC - Eye Exam Eye Exam: Normal appearance Pupil Exam: NORMAL ACCOMODATION - ENT Exam ENT Exam: Mucous Membranes Moist - Neck Exam Neck Exam: Full ROM - Respiratory Exam Respiratory Exam: Decreased Breath Sounds - Cardiovascular Exam Cardiovascular Exam: REGULAR RHYTHM - GI/Abdominal Exam GI & Abdominal Exam: Normal Bowel Sounds - Exam Exam: NORMAL INSPECTION - Extremities Exam Extremities Exam: Full ROM, Normal Inspection - Back Exam Back Exam: NORMAL INSPECTION - Neurological Exam Neurological Exam: Alert, Awake, Normal Gait, Oriented x3 - Psychiatric Exam Psychiatric exam: Normal Affect - Skin Skin Exam: Normal Color Assessment and Plan - Assessment and Plan (Free Text) Assessment: bilateral pleural efusion cardiomegaly s/p chest pain Plan: thoracosyntsis
--- NOTE | 2018-08-17 18:22 | CARD ---
APPROVED REPORT Date of service: 08/16/2018 EKG Measurement Heart [id number] <Conclusion> Normal sinus rhythm ST & T wave abnormality, consider inferolateral ischemia Prolonged QT Abnormal ECG
--- NOTE | 2018-08-17 19:53 | PN ---
DATE: 08/17/2018 SUBJECTIVE: The patient still mildly short of breath. Denies any retrosternal chest pain. PHYSICAL EXAMINATION: VITAL SIGNS: Blood pressure 111/73, heart rate 84, temperature 98.4, respirations 20. HEENT: Normocephalic. CHEST: Absent breath sounds over the bases and diffuse bilateral rhonchi. HEART: S1 and S2. Regular. No pericardial rub. ABDOMEN: Soft. EXTREMITIES: 2+ pitting edema. Venous Doppler of lower extremity preliminary report, no evidence of DVT. Echocardiography study revealed normal left ventricular systolic function, small circumferential pericardial effusion. No evidence of tamponade. Mild pulmonary hypertension and moderate left pleural effusion. ASSESSMENT: 1. Chest pain, myocardial infarction is ruled out. 2. Bilateral pleural effusion and small pericardial effusion. 3. Pedal edema. 4. Mild pulmonary hypertension. RECOMMENDATIONS: Continue current IV Zithromax and IV Rocephin. Continue Cozaar 100 mg once a day, Lovenox 30 mg subcutaneous once a day, Norvasc 10 mg once a day, Protonix 40 mg p.o. once a day. I requested rheumatoid factor as well as lupus panel. I recommend performing PPD testing. The patient denied any history of exposure to TB or prior TB treatment. Kamari Jalloh MD
[2018-08-18] MEDS: Albuterol-Ipratrop 3 mg / 0.5 (3 ml) UD INH SCH ×4 (01:23→19:53)
[2018-08-18] MEDS ORDERED: Lidocaine 2% MPF (5 ml) Inj ONE (08:39)
[2018-08-18] MEDS: Enoxaparin 30 mg Syringe SC SCH (09:12)
[2018-08-18] MEDS: Pantoprazole 40 mg EC Tab PO SCH (10:06)
[2018-08-18] MEDS: cefTRIAXone 2 GM in Sodium Chloride 0.9% 100 ML IVPB SCH (10:06)
[2018-08-18] MEDS: Lidocaine 5% Patch TD SCH (10:07)
--- NOTE | 2018-08-18 11:38 | CP.PCM.PN ---
<Paty Davila - Last Filed: 08/18/18 14:42> Subjective - Date & Time of Evaluation Date of Evaluation: 08/18/18 Time of Evaluation: 11:34 - Subjective Subjective: Pulm progress note for Dr. Abraham. Patient seen and examined at bedside. Patient said he just returned from a thoracocentesis. Patient's SOB has improved. Currently on nasal cannula. Patient is afebrile. He denies chills, nausea, vomiting, constipation and roberta rrhea. Objective - Vital Signs/Intake and Output Vital Signs (last 24 hours): Temp Pulse Resp BP Pulse Ox 98.0 F 99 H 20 118/76 97 08/18/18 08:00 08/18/18 08:00 08/18/18 08:00 08/18/18 08:00 08/18/18 08:00 Intake and Output: 08/18/18 08/18/18 06:59 18:59 Intake Total 240 Output Total 0 Balance 240 - Medications Medications: Current Medications Albuterol/Ipratropium (Duoneb 3 Mg/0.5 Mg (3 Ml) Ud) 3 ml INH RQ6 [facility] Last Admin: 08/18/18 07:58 Dose: 3 ml Amlodipine Besylate (Norvasc) 10 mg PO DAILY [facility] Last Admin: 08/18/18 10:06 Dose: 10 mg Enoxaparin Sodium (Lovenox) 30 mg SC DAILY [facility] Last Admin: 08/18/18 09:12 Dose: Not Given Azithromycin 500 mg/ Sodium (Chloride) 250 mls @ 250 mls/hr IVPB Q24H [facility]; P rotocol Last Admin: 08/17/18 15:11 Dose: 250 mls/hr Ceftriaxone Sodium 2 gm/ (Sodium Chloride) 100 mls @ 100 mls/hr IVPB DAILY [facility]; Protocol Last Admin: 08/18/18 10:06 Dose: 100 mls/hr Lidocaine (Lidoderm) 1 ea TD DAILY [facility] Last Admin: 08/18/18 10:07 Dose: Not Given Losartan Potassium (Cozaar) 100 mg PO DAILY [facility] Last Admin: 08/18/18 10:06 Dose: 100 mg Mupirocin (Bactroban Ointment) 0 gm TOP BID [facility] Last Admin: 08/18/18 10:20 Dose: 1 oin Oxycodone/Acetaminophen (Percocet 5/325 Mg Tab) 1 tab PO Q6H PRN PRN Reason: Pain, moderate (4-7) Stop: 08/18/18 19:17 Last Admin: 08/17/18 03:45 Dose: 1 tab Pantoprazole Sodium (Protonix Ec Tab) 40 mg PO DAILY [facility] Last Admin: 08/18/18 10:06 Dose: 40 mg - Labs Labs: 08/16/18 06:13 08/16/18 06:13 PT 14.1 SECONDS (9.7-12.2) H 08/15/18 07:59 INR 1.3 08/15/18 07:59 APTT 33 SECONDS (21-34) 08/15/18 07:59 - Constitutional Appears: Well, Toxic, No Acute Distress - Head Exam Head Exam: ATRAUMATIC, NORMOCEPHALIC - Eye Exam Eye Exam: EOMI, Normal appearance - ENT Exam ENT Exam: Mucous Membranes Moist - Neck Exam Neck Exam: Normal Inspection - Respiratory Exam Respiratory Exam: Clear to Ausculation Bilateral, NORMAL BREATHING PATTERN. absent: Chest Wall Tenderness - Cardiovascular Exam Cardiovascular Exam: REGULAR RHYTHM, +S1, +S2 - GI/Abdominal Exam GI & Abdominal Exam: Normal Bowel Sounds - Extremities Exam Extremities Exam: absent: Pedal Edema - Neurological Exam Neurological Exam: Oriented x3 - Psychiatric Exam Psychiatric exam: Normal Mood - Skin Skin Exam: Dry, Intact Assessment and Plan - Assessment and Plan (Free Text) Assessment: 62 year old Male with a PMH of HTN. Pulm consulted for SOB secondary to pleural effusions. Plan: Bilateral Plural Effusions Thoracocentesis on 08/18 F/u plueral effusion analysis (albumin, Glucose, cell count, LDH, cholesterol) Continue Duoneb Continue antibiolotics (Azithromycin and ceftriaxone) Pending CBC/CMP PGY-1 Pelonsmita Davila Case d/w Dr. Abraham <Chaitanya Abraham - Last Filed: 08/18/18 17:50> Objective - Vital Signs/Intake and Output Vital Signs (last 24 hours): Temp Pulse Resp BP Pulse Ox 98.5 F 92 H 18 119/75 97 08/18/18 17:29 08/18/18 17:29 08/18/18 17:29 08/18/18 17:29 08/18/18 17:29 Intake and Output: 08/18/18 08/18/18 06:59 18:59 Intake Total 240 Output Total 0 Balance 240 - Medications Medications: Current Medications Albuterol/Ipratropium (Duoneb 3 Mg/0.5 Mg (3 Ml) Ud) 3 ml INH RQ6 [facility] Last Admin: 08/18/18 13:30 Dose: 3 ml Amlodipine Besylate (Norvasc) 10 mg PO DAILY [facility] Last Admin: 08/18/18 10:06 Dose: 10 mg Enoxaparin Sodium (Lovenox) 30 mg SC DAILY [facility] Last Admin: 08/18/18 09:12 Dose: Not Given Azithromycin 500 mg/ Sodium (Chloride) 250 mls @ 250 mls/hr IVPB Q24H [facility]; Protocol Last Admin: 08/18/18 14:33 Dose: 250 mls/hr Ceftriaxone Sodium 2 gm/ (Sodium Chloride) 100 mls @ 100 mls/hr IVPB DAILY [facility]; Protocol Last Admin: 08/18/18 10:06 Dose: 100 mls/hr Lidocaine (Lidoderm) 1 ea TD DAILY [facility] Last Admin: 08/18/18 10:07 Dose: Not Given Losartan Potassium (Cozaar) 100 mg PO DAILY [facility] Last Admin: 08/18/18 10:06 Dose: 100 mg Mupirocin (Bactroban Ointment) 0 gm TOP BID [facility] Last Admin: 08/18/18 17:21 Dose: 1 applic Oxycodone/Acetaminophen (Percocet 5/325 Mg Tab) 1 tab PO Q6H PRN PRN Reason: Pain, moderate (4-7) Stop: 08/18/18 19:17 Last Admin: 08/17/18 03:45 Dose: 1 tab Pantoprazole Sodium (Protonix Ec Tab) 40 mg PO DAILY [facility] Last Admin: 08/18/18 10:06 Dose: 40 mg - Labs Labs: 08/18/18 16:53 08/18/18 16:53 PT 14.1 SECONDS (9.7-12.2) H 08/15/18 07:59 INR 1.3 08/15/18 07:59 APTT 33 SECONDS (21-34) 08/15/18 07:59 Attending/Attestation - Attestation I have personally seen and examined this patient.: Yes I have fully participated in the care of the patient.: Yes I have reviewed all pertinent clinical information, including history, physical exam and plan: Yes Notes (Text): 08/18/18 17:48 Patient seen and examined Status post thoracentesis Follow-up fluid analysis/pathology Denies any chest pain Continue present treatment for now
--- NOTE | 2018-08-18 12:14 | VASCLAB ---
Date of service: 08/17/2018 PROCEDURE: Lower Extremity Venous Duplex Exam. HISTORY: r/o DVT PRIORS: None. TECHNIQUE: Bilateral common femoral, femoral, popliteal and posterior tibial, peroneal and great saphenous veins were evaluated. Flow was assessed with color Doppler, compressibility, assessment of phasic flow and augmentation response. Report prepared by Deepak Mclean, BS, RVT FINDINGS: RIGHT: 1. Common Femoral Vein: 1.1. Compressibility - Fully compressible: Thrombus - None : Flow - Phasic: Augmentation -Normal: Reflux - None. 2. Femoral Vein: 2.1. Compressibility - Fully compressible: Thrombus - None : Flow - Phasic: Augmentation -Normal: Reflux - None. 3. Popliteal Vein: 3.1. Compressibility - Fully compressible: Thrombus - None : Flow - Phasic: Augmentation -Normal: Reflux - None. 4. Posterior Tibial Vein: 4.1. Compressibility - Fully compressible: Thrombus - None: Flow - Phasic: Augmentation -Normal: Reflux - None. 5. Peroneal Vein: 5.1. Compressibility - Fully compressible: Thrombus - None: Flow - Phasic: Augmentation -Normal: Reflux - None. 6. Great Saphenous Vein: 6.1. Compressibility - Fully compressible: Thrombus - None: Flow - Phasic: Augmentation - Normal: Reflux - None. LEFT: 1. Common Femoral Vein: 1.1. Compressibility - Fully compressible: Thrombus - None: Flow - Phasic: Augmentation -Normal: Reflux - None. 2. Femoral Vein: 2.1. Compressibility - Fully compressible: Thrombus - None: Flow - Phasic: Augmentation -Normal: Reflux - None. 3. Popliteal Vein: 3.1. Compressibility - Fully compressible: Thrombus - None : Flow - Phasic: Augmentation -Normal: Reflux - None. 4. Posterior Tibial Vein: 4.1. Compressibility - Fully compressible: Thrombus - None: Flow - Phasic: Augmentation -Normal: Reflux - None. 5. Peroneal Vein: 5.1. Compressibility - Fully compressible: Thrombus - None: Flow - Phasic: Augmentation -Normal: Reflux - None. 6. Great Saphenous Vein: 6.1. Compressibility - Fully compressible: Thrombus - None: Flow - Phasic: Augmentation - Normal: Reflux - None. OTHER FINDINGS: None significant. IMPRESSION: Right: No evidence of deep or superficial vein thrombosis of the right lower extremity. Normal valve function noted of the right side. Left: No evidence of deep or superficial vein thrombosis of the left lower extremity. Normal valve function noted of the left side.
--- NOTE | 2018-08-18 12:28 | CP.PCM.PN ---
Subjective - Date & Time of Evaluation Date of Evaluation: 08/18/18 Time of Evaluation: 12:25 - Subjective Subjective: pt feels beter breathing beter no chest pain Objective - Vital Signs/Intake and Output Vital Signs (last 24 hours): Temp Pulse Resp BP Pulse Ox 98.0 F 99 H 20 118/76 97 08/18/18 08:00 08/18/18 08:00 08/18/18 08:00 08/18/18 08:00 08/18/18 08:00 Intake and Output: 08/18/18 08/18/18 06:59 18:59 Intake Total 240 Output Total 0 Balance 240 - Medications Medications: Current Medications Albuterol/Ipratropium (Duoneb 3 Mg/0.5 Mg (3 Ml) Ud) 3 ml INH RQ6 [facility] Last Admin: 08/18/18 07:58 Dose: 3 ml Amlodipine Besylate (Norvasc) 10 mg PO DAILY [facility] Last Admin: 08/18/18 10:06 Dose: 10 mg Enoxaparin Sodium (Lovenox) 30 mg SC DAILY [facility] Last Admin: 08/18/18 09:12 Dose: Not Given Azithromycin 500 mg/ Sodium (Chloride) 250 mls @ 250 mls/hr IVPB Q24H [facility]; Protocol Last Admin: 08/17/18 15:11 Dose: 250 mls/hr Ceftriaxone Sodium 2 gm/ (Sodium Chloride) 100 mls @ 100 mls/hr IVPB DAILY [facility]; Protocol Last Admin: 08/18/18 10:06 Dose: 100 mls/hr Lidocaine (Lidoderm) 1 ea TD DAILY [facility] Last Admin: 08/18/18 10:07 Dose: Not Given Losartan Potassium (Cozaar) 100 mg PO DAILY [facility] Last Admin: 08/18/18 10:06 Dose: 100 mg Mupirocin (Bactroban Ointment) 0 gm TOP BID [facility] Last Admin: 08/18/18 10:20 Dose: 1 oin Oxycodone/Acetaminophen (Percocet 5/325 Mg Tab) 1 tab PO Q6H PRN PRN Reason: Pain, moderate (4-7) Stop: 08/18/18 19:17 Last Admin: 08/17/18 03:45 Dose: 1 tab Pantoprazole Sodium (Protonix Ec Tab) 40 mg PO DAILY [facility] Last Admin: 08/18/18 10:06 Dose: 40 mg - Labs Labs: 08/16/18 06:13 08/16/18 06:13 PT 14.1 SECONDS (9.7-12.2) H 08/15/18 07:59 INR 1.3 08/15/18 07:59 APTT 33 SECONDS (21-34) 08/15/18 07:59 - Constitutional Appears: Non-toxic - Head Exam Head Exam: ATRAUMATIC - Eye Exam Eye Exam: Normal appearance Pupil Exam: NORMAL ACCOMODATION - ENT Exam ENT Exam: Mucous Membranes Moist - Neck Exam Neck Exam: Full ROM - Respiratory Exam Respiratory Exam: Decreased Breath Sounds, NORMAL BREATHING PATTERN - Cardiovascular Exam Cardiovascular Exam: REGULAR RHYTHM - Exam Exam: NORMAL INSPECTION - Extremities Exam Extremities Exam: Full ROM - Back Exam Back Exam: NORMAL INSPECTION - Neurological Exam Neurological Exam: Normal Gait, Oriented x3 - Psychiatric Exam Psychiatric exam: Normal Mood - Skin Skin Exam: Normal Color Assessment and Plan - Assessment and Plan (Free Text) Assessment: sa/p thoracosyntesis pleural efusion non stemi Plan: continu as ordered
--- NOTE | 2018-08-18 12:55 | US ---
PROCEDURE: Date of procedure: 08/18/2018 Procedure: 1. Ultrasound-guided Right thoracentesis, CPT 93232 Medications: 6cc 1% Lidocaine HISTORY: Right pleural effusion, shortness of breath TECHNIQUE: Following informed consent ,the Patients' right chest was marked. Procedure time-out was called, and the patient was placed in the sitting position and limited ultrasound showed a large right effusion. The patient's right back was prepped and draped in the usual sterile fashion. After the skin was anesthetized with lidocaine, a drainage catheter was advanced under ultrasound guidance into the pleural space. Ultrasound-guided thoracentesis was performed. A total of 1000 cubic centimeters of straw-colored fluid removed without complication. A Xeroform dressing was applied. IMPRESSION: Ultrasound guided Right thoracentesis. There were no immediate complications.
[2018-08-18 13:38] LABS: BODY FLUID TYPE PLEURAL/THORACENTESI
[2018-08-18 14:28] LABS: BF GROSS APPEARANCE SL CLOUDY (CLEAR)
[2018-08-18 14:29] LABS: BODY FLUID MONO/MACROPHAGE 5 % (0-0); BODY FLUID TOTAL COUNT 100 (0-0)
[2018-08-18] MEDS: Azithromycin 500 MG in Sodium Chloride 0.9% 250 ML IVPB SCH (14:33)
[2018-08-18 17:05] LABS: BASO # 0.1 K/uL (0.0-0.2); BASO % 0.4 % (0.0-2.0); EOS # 0.1 K/uL (0.0-0.7); EOS % 0.8 % (0.0-4.0); HEMOGLOBIN 11.1 g/dL (12.0-18.0); LYMPH # 0.9 K/uL (1.0-4.3); LYMPH % 6.3 % (20.0-40.0); MEAN CORPUSCULAR HEMOGLOBIN 28.5 pg (27.0-31.0); MEAN CORPUSCULAR HGB CONC 33.2 g/dL (33.0-37.0); MONO # 0.8 K/uL (0.0-0.8); MONO % 6.1 % (0.0-10.0); NEUT % 86.4 % (50.0-75.0); PLATELET COUNT 693 K/uL (130-400); RBC 3.89 Mil/uL (4.40-5.90); WHITE BLOOD COUNT 13.9 K/uL (4.8-10.8)
[2018-08-18 17:21] LABS: ALB/GLOB RATIO 1.2 (1.0-2.1); ALT/SGPT 35 U/L (21-72); AST/SGOT 29 U/L (17-59); BLOOD UREA NITROGEN 17 mg/dL (9-20); CALCIUM 8.3 mg/dl (8.6-10.4); GFR NON-AFRICAN AMERICAN > 60
--- NOTE | 2018-08-18 20:38 | PN ---
DATE: 08/18/2018 SUBJECTIVE: The patient underwent left thoracocentesis by Interventional Radiology with removal of 1 L of straw colored fluid without complication. The patient denies chest pain. He is mildly short of breath. PHYSICAL EXAMINATION: VITAL SIGNS: Blood pressure 116/78, heart rate 98, temperature 98, respirations 20. HEENT: Normocephalic. CHEST: Absent breath sounds over the bases. HEART: S1 and S2 regular. ABDOMEN: Soft. EXTREMITIES: 1+ pitting edema. ASSESSMENT: 1. Chest pain, myocardial infarction is ruled out. 2. Bilateral pleural effusion, status post thoracocentesis with removal of 1 L of straw colored fluid. 3. Pedal edema. 4. Mild pulmonary hypertension. 5. Rule out tuberculosis versus sarcoidosis. RECOMMENDATIONS: Continue current IV Zithromax at 500 mg daily, Rocephin 2 grams intravenously daily, continue Cozaar at 100 mg once a day, resume Lovenox 30 mg daily. Case was discussed with Dr. Mare Lackey, the primary physician. Kamari Jalloh MD
[2018-08-18 20:45] LABS: BANDS 2 % (0-2); EOSINOPHIL 1 % (0-4); LYMPHOCYTE 5 % (20-40); MONOCYTE 5 % (0-10); NEUTROPHIL 87 % (50-75); PLATELET ESTIMATE INCREASED (NORMAL); TOTAL CELLS COUNTED 100
[2018-08-19] MEDS: Albuterol-Ipratrop 3 mg / 0.5 (3 ml) UD INH SCH ×4 (01:41→20:38)
[2018-08-19] MEDS: cefTRIAXone 2 GM in Sodium Chloride 0.9% 100 ML IVPB SCH (09:50)
[2018-08-19] MEDS: Pantoprazole 40 mg EC Tab PO SCH (09:50)
[2018-08-19] MEDS: Enoxaparin 30 mg Syringe SC SCH (09:51)
[2018-08-19] MEDS: Lidocaine 5% Patch TD SCH (09:51)
--- NOTE | 2018-08-19 10:40 | CP.PCM.PN ---
Subjective - Date & Time of Evaluation Date of Evaluation: 08/19/18 Time of Evaluation: 10:38 - Subjective Subjective: feels beter ambulatory breathing beter Objective - Vital Signs/Intake and Output Vital Signs (last 24 hours): Temp Pulse Resp BP Pulse Ox 99.4 F 101 H 20 130/83 95 08/18/18 23:00 08/19/18 08:45 08/18/18 23:00 08/18/18 23:00 08/18/18 23:00 Intake and Output: 08/19/18 08/19/18 06:59 18:59 Intake Total 300 50 Balance 300 50 - Medications Medications: Current Medications Albuterol/Ipratropium (Duoneb 3 Mg/0.5 Mg (3 Ml) Ud) 3 ml INH RQ6 [facility] Last Admin: 08/19/18 08:03 Dose: 3 ml Amlodipine Besylate (Norvasc) 10 mg PO DAILY [facility] Last Admin: 08/19/18 09:50 Dose: 10 mg Enoxaparin Sodium (Lovenox) 30 mg SC DAILY [facility] Last Admin: 08/19/18 09:51 Dose: Not Given Azithromycin 500 mg/ Sodium (Chloride) 250 mls @ 250 mls/hr IVPB Q24H [facility]; Protocol Last Admin: 08/18/18 14:33 Dose: 250 mls/hr Ceftriaxone Sodium 2 gm/ (Sodium Chloride) 100 mls @ 100 mls/hr IVPB DAILY [facility]; Protocol Last Admin: 08/19/18 09:50 Dose: 100 mls/hr Lidocaine (Lidoderm) 1 ea TD DAILY [facility] Last Admin: 08/19/18 09:51 Dose: Not Given Losartan Potassium (Cozaar) 100 mg PO DAILY [facility] Last Admin: 08/19/18 09:50 Dose: 100 mg Mupirocin (Bactroban Ointment) 0 gm TOP BID [facility] Last Admin: 08/19/18 09:53 Dose: 1 applic Pantoprazole Sodium (Protonix Ec Tab) 40 mg PO DAILY [facility] Last Admin: 08/19/18 09:50 Dose: 40 mg - Labs Labs: 08/18/18 16:53 08/18/18 16:53 PT 14.1 SECONDS (9.7-12.2) H 08/15/18 07:59 INR 1.3 08/15/18 07:59 APTT 33 SECONDS (21-34) 08/15/18 07:59 - Constitutional Appears: Non-toxic - Head Exam Head Exam: ATRAUMATIC - Eye Exam Eye Exam: Normal appearance Pupil Exam: NORMAL ACCOMODATION - ENT Exam ENT Exam: Mucous Membranes Moist - Neck Exam Neck Exam: Normal Inspection - Respiratory Exam Respiratory Exam: Decreased Breath Sounds - Cardiovascular Exam Cardiovascular Exam: REGULAR RHYTHM - GI/Abdominal Exam GI & Abdominal Exam: Normal Bowel Sounds - Exam Exam: NORMAL INSPECTION - Back Exam Back Exam: NORMAL INSPECTION - Neurological Exam Neurological Exam: Awake, Normal Gait, Oriented x3 - Psychiatric Exam Psychiatric exam: Normal Affect - Skin Skin Exam: Normal Color Assessment and Plan - Assessment and Plan (Free Text) Assessment: bilateral pleural efusion possble pnumonia on iv antibiotics await result of efusion cont antibiotics chest xray don now Plan: as ordered
--- NOTE | 2018-08-19 10:58 | CP.PCM.PN ---
Subjective - Date & Time of Evaluation Date of Evaluation: 08/19/18 Time of Evaluation: 10:56 - Subjective Subjective: Pulmonary progress note for Dr. Abraham's service. Patient seen and examined at bedside. Patient has no acute complaints. Patient is afebrile. He denies chills, nausea, vomiting, constipation and diarrhea. Objective - Vital Signs/Intake and Output Vital Signs (last 24 hours): Temp Pulse Resp BP Pulse Ox 98.0 F 101 H 18 118/78 99 08/19/18 07:00 08/19/18 08:45 08/19/18 07:00 08/19/18 07:00 08/19/18 07:00 Intake and Output: 08/19/18 08/19/18 06:59 18:59 Intake Total 300 50 Balance 300 50 - Medications Medications: Current Medications Albuterol/Ipratropium (Duoneb 3 Mg/0.5 Mg (3 Ml) Ud) 3 ml INH RQ6 [facility] Last Admin: 08/19/18 08:03 Dose: 3 ml Amlodipine Besylate (Norvasc) 10 mg PO DAILY [facility] Last Admin: 08/19/18 09:50 Dose: 10 mg Enoxaparin Sodium (Lovenox) 30 mg SC DAILY [facility] Last Admin: 08/19/18 09:51 Dose: Not Given Azithromycin 500 mg/ Sodium (Chloride) 250 mls @ 250 mls/hr IVPB Q24H [facility]; Protocol Last Admin: 08/18/18 14:33 Dose: 250 mls/hr Ceftriaxone Sodium 2 gm/ (Sodium Chloride) 100 mls @ 100 mls/hr IVPB DAILY [facility]; Protocol Last Admin: 08/19/18 09:50 Dose: 100 mls/hr Lidocaine (Lidoderm) 1 ea TD DAILY [facility] Last Admin: 08/19/18 09:51 Dose: Not Given Losartan Potassium (Cozaar) 100 mg PO DAILY [facility] Last Admin: 08/19/18 09:50 Dose: 100 mg Mupirocin (Bactroban Ointment) 0 gm TOP BID [facility] Last Admin: 08/19/18 09:53 Dose: 1 applic Pantoprazole Sodium (Protonix Ec Tab) 40 mg PO DAILY [facility] Last Admin: 08/19/18 09:50 Dose: 40 mg - Labs Labs: 08/18/18 16:53 08/18/18 16:53 PT 14.1 SECONDS (9.7-12.2) H 08/15/18 07:59 INR 1.3 08/15/18 07:59 APTT 33 SECONDS (21-34) 08/15/18 07:59 - Constitutional Appears: Non-toxic, No Acute Distress - Head Exam Head Exam: NORMAL INSPECTION - Eye Exam Eye Exam: EOMI, Normal appearance - ENT Exam ENT Exam: Mucous Membranes Moist - Neck Exam Neck Exam: Full ROM, Normal Inspection - Respiratory Exam Respiratory Exam: Clear to Ausculation Bilateral, NORMAL BREATHING PATTERN - Cardiovascular Exam Cardiovascular Exam: REGULAR RHYTHM, +S1, +S2 - GI/Abdominal Exam GI & Abdominal Exam: Normal Bowel Sounds - Extremities Exam Extremities Exam: Normal Inspection - Neurological Exam Neurological Exam: Oriented x3 - Psychiatric Exam Psychiatric exam: Normal Mood Assessment and Plan - Assessment and Plan (Free Text) Assessment: 62 year old Male with a PMH of HTN. Pulmonary consulted for SOB secondary to pleural effusions. Plan: Bilateral Plural Effusions Thoracocentesis on 08/18 F/u plueral effusion analysis pending (albumin, Glucose LDH, cholesterol) Fluid apprearance is cloudy, Fluid total cell count 100, Fluid WBC 1668 Continue Duoneb Continue antibiolotics (Azithromycin and ceftriaxone) Repeat CXR pending full read CBC: WBC trending down CMP: Na trending up, continue management per primary team PGY-1 Paty Davila Case d/w Dr. Abraham
--- NOTE | 2018-08-19 11:47 | RAD ---
Date of service: 08/19/2018 PROCEDURE: CHEST RADIOGRAPH, 1 VIEW HISTORY: f/u COMPARISON: 08/15/2018 FINDINGS: LUNGS: Opacity at left base common nonspecific. Possible pneumonia. Follow-up advised. PLEURA: Probable small left pleural effusion. No right pleural effusion. No pneumothorax. CARDIOVASCULAR: No aortic atherosclerotic calcification present. Normal. OSSEOUS STRUCTURES: No significant abnormalities. VISUALIZED UPPER ABDOMEN: Normal. OTHER FINDINGS: None. IMPRESSION: Left basilar opacity. Possible pneumonia. Possible small left pleural effusion. Follow-up advised.
[2018-08-19] MEDS: Azithromycin 500 MG in Sodium Chloride 0.9% 250 ML IVPB SCH (14:43)
[2018-08-19 17:38] VITALS: RESP 20
--- NOTE | 2018-08-19 23:15 | PN ---
DATE: 08/19/2018 SUBJECTIVE: The patient's shortness of breath has improved. He is still experiencing leg swelling. PHYSICAL EXAMINATION: VITAL SIGNS: Blood pressure 118/78, heart rate 94, temperature 98, respirations 18. HEENT: Normocephalic. CHEST: Absent breath sounds over the bases. HEART: S1 and S2 regular. ABDOMEN: Soft. EXTREMITIES: 1+ pitting edema. LABORATORY DATA: Blood culture is negative after three days. Chest x-ray performed today revealed left basal opacity, possible pneumonia, possible small left pleural effusion. ASSESSMENT: 1. Chest pain. Myocardial infarction is ruled out. The patient has normal coronary circulation. 2. Pleural effusion, status post thoracocentesis. 3. Consider left lower lobe pneumonia. 4. Mild pulmonary hypertension. 5. Small pericardial effusion. RECOMMENDATIONS: Continue current IV Rocephin and IV Zithromax. Continue Cozaar at 100 mg once a day, Lovenox 30 mg subcutaneously once a day, amlodipine at 10 mg once a day. Start Lasix at 20 mg orally once a day. Consider 24-hour urinary protein to rule out nephrotic syndrome. The patient has albumin level of 3. Also, I recommend performing TB culture on the patient's thoracocentesis specimen obtained yesterday. Kamari Jalloh MD
[2018-08-20] MEDS: Albuterol-Ipratrop 3 mg / 0.5 (3 ml) UD INH SCH (01:26)
[2018-08-20] MEDS: Lidocaine 5% Patch TD SCH (10:19)
[2018-08-20] MEDS: Pantoprazole 40 mg EC Tab PO SCH (10:20)
[2018-08-20] MEDS: Enoxaparin 30 mg Syringe SC SCH (10:20)
[2018-08-20] MEDS: cefTRIAXone 2 GM in Sodium Chloride 0.9% 100 ML IVPB SCH (10:21)
--- NOTE | 2018-08-20 12:09 | CP.PCM.PN ---
<Paty Davila - Last Filed: 08/20/18 14:18> Subjective - Date & Time of Evaluation Date of Evaluation: 08/20/18 Time of Evaluation: 12:08 - Subjective Subjective: Pulmonary progress note for Dr. Abraham's service. Patient seen and examined at bedside. Patient has no acute complaints. He denies SOB, chest pain, chills, nausea, vomiting, constipation and diarrhea. Objective - Vital Signs/Intake and Output Vital Signs (last 24 hours): Temp Pulse Resp BP Pulse Ox 98 F 96 H 20 137/76 98 08/20/18 08:00 08/20/18 08:00 08/20/18 08:00 08/20/18 10:21 08/20/18 08:00 Intake and Output: 08/20/18 08/20/18 06:59 18:59 Intake Total 300 Balance 300 - Medications Medications: Current Medications Albuterol/Ipratropium (Duoneb 3 Mg/0.5 Mg (3 Ml) Ud) 3 ml INH RQ6 [facility] Last Admin: 08/20/18 01:26 Dose: Not Given Amlodipine Besylate (Norvasc) 10 mg PO DAILY [facility] Last Admin: 08/20/18 10:21 Dose: 10 mg Enoxaparin Sodium (Lovenox) 30 mg SC DAILY [facility] Last Admin: 08/20/18 10:20 Dose: 30 mg Furosemide (Lasix) 20 mg PO DAILY [facility] Last Admin: 08/20/18 10:21 Dose: 20 mg Azithromycin 500 mg/ Sodium (Chloride) 250 mls @ 250 mls/hr IVPB Q24H [facility]; Protocol Last Admin: 08/19/18 14:43 Dose: 250 mls/hr Ceftriaxone Sodium 2 gm/ (Sodium Chloride) 100 mls @ 100 mls/hr IVPB DAILY [facility]; Protocol Last Admin: 08/20/18 10:21 Dose: 100 mls/hr Lidocaine (Lidoderm) 1 ea TD DAILY [facility] Last Admin: 08/20/18 10:19 Dose: 1 ea Losartan Potassium (Cozaar) 100 mg PO DAILY [facility] Last Admin: 08/20/18 10:20 Dose: 100 mg Mupirocin (Bactroban Ointment) 0 gm TOP BID [facility] Last Admin: 08/20/18 10:20 Dose: 1 applic Pantoprazole Sodium (Protonix Ec Tab) 40 mg PO DAILY [facility] Last Admin: 08/20/18 10:20 Dose: 40 mg - Labs Labs: 08/18/18 16:53 08/18/18 16:53 PT 14.1 SECONDS (9.7-12.2) H 08/15/18 07:59 INR 1.3 08/15/18 07:59 APTT 33 SECONDS (21-34) 08/15/18 07:59 - Constitutional Appears: Non-toxic, No Acute Distress - Head Exam Head Exam: NORMAL INSPECTION - Eye Exam Eye Exam: EOMI, Normal appearance, PERRL - ENT Exam ENT Exam: Mucous Membranes Moist, Normal Exam - Neck Exam Neck Exam: Normal Inspection - Respiratory Exam Respiratory Exam: Decreased Breath Sounds, NORMAL BREATHING PATTERN. absent: Accessory Muscle Use, Chest Wall Tenderness, Wheezes - Cardiovascular Exam Cardiovascular Exam: REGULAR RHYTHM, +S1, +S2 - GI/Abdominal Exam GI & Abdominal Exam: Normal Bowel Sounds - Extremities Exam Extremities Exam: Full ROM, Normal Inspection - Neurological Exam Neurological Exam: Oriented x3 - Skin Skin Exam: Normal Color Assessment and Plan - Assessment and Plan (Free Text) Assessment: 62 year old Male with a PMH of HTN. Pulmonary consulted for SOB secondary to pleural effusions. Plan: Bilateral Plural Effusions Thoracocentesis on 08/18 F/u plueral effusion analysis pending (albumin, Glucose LDH, cholesterol) Fluid apprearance is cloudy, Fluid total cell count 100, Fluid WBC 1668 Patient continues to refuse Duoneb, continue to recommend Duoneb treatment Continue antibiolotics (Azithromycin and ceftriaxone) Repeat CXR Continue management per primary team PGY-1 Paty Davila Case d/w Dr. Abraham <Chaitanya Abraham S - Last Filed: 08/21/18 15:30> Objective - Vital Signs/Intake and Output Vital Signs (last 24 hours): Temp Pulse Resp BP Pulse Ox 99 F 91 H 20 130/83 98 08/20/18 15:58 08/20/18 15:58 08/20/18 15:58 08/20/18 15:58 08/20/18 15:58 Intake and Output: 08/20/18 08/20/18 06:59 18:59 Intake Total 300 580 Output Total 800 Balance 300 -220 - Medications Medications: Current Medications Amlodipine Besylate (Norvasc) 10 mg PO DAILY [facility] Last Admin: 08/20/18 10:21 Dose: 10 mg Enoxaparin Sodium (Lovenox) 30 mg SC DAILY [facility] Last Admin: 08/20/18 10:20 Dose: 30 mg Furosemide (Lasix) 20 mg PO DAILY [facility] Last Admin: 08/20/18 10:21 Dose: 20 mg Lidocaine (Lidoderm) 1 ea TD DAILY [facility] Last Admin: 08/20/18 10:19 Dose: 1 ea Losartan Potassium (Cozaar) 100 mg PO DAILY [facility] Last Admin: 08/20/18 10:20 Dose: 100 mg Mupirocin (Bactroban Ointment) 0 gm TOP BID [facility] Last Admin: 08/20/18 17:53 Dose: 1 applic Pantoprazole Sodium (Protonix Ec Tab) 40 mg PO DAILY [facility] Last Admin: 08/20/18 10:20 Dose: 40 mg - Labs Labs: 08/18/18 16:53 08/18/18 16:53 PT 14.1 SECONDS (9.7-12.2) H 08/15/18 07:59 INR 1.3 08/15/18 07:59 APTT 33 SECONDS (21-34) 08/15/18 07:59 Attending/Attestation - Attestation I have personally seen and examined this patient.: Yes I have fully participated in the care of the patient.: Yes I have reviewed all pertinent clinical information, including history, physical exam and plan: Yes Notes (Text): Patient seen and examined Denies any complaints Okay to discharge home Fluid analysis
--- NOTE | 2018-08-20 13:02 | RAD ---
Date of service: 08/20/2018 HISTORY: Follow-up COMPARISON: 08/19/2018. TECHNIQUE: Chest PA and lateral FINDINGS: LINES AND TUBES: None. LUNG AND PLEURA: The lungs are well inflated. There is interval mild improved aeration in the left lower lobe with persistent residual airspace disease. There is also airspace disease in the right lower lobe. There are small effusions. No pneumothorax with HEART AND MEDIASTINUM: The heart is not enlarged. No aortic atherosclerotic calcifications present. The hilar and mediastinal contours are within normal limits. SKELETAL STRUCTURES: The bony structures are within normal limits for the patient's age. VISUALIZED UPPER ABDOMEN: Normal. OTHER FINDINGS: None. IMPRESSION: Interval mild improved aeration in the left lower lobe with residual presumable pneumonia. Suspect atelectasis/pneumonia in the right lower lobe. Small effusions.
[2018-08-20] MEDS: Azithromycin 500 MG in Sodium Chloride 0.9% 250 ML IVPB SCH (16:28)
--- NOTE | 2018-08-20 17:08 | CP.PCM.PN ---
Subjective - Date & Time of Evaluation Date of Evaluation: 08/20/18 Time of Evaluation: 17:05 - Subjective Subjective: pt comfortable still on iv antibiotics pleural efusion result wbc hi culturs pending Objective - Vital Signs/Intake and Output Vital Signs (last 24 hours): Temp Pulse Resp BP Pulse Ox 99 F 91 H 20 130/83 98 08/20/18 15:58 08/20/18 15:58 08/20/18 15:58 08/20/18 15:58 08/20/18 15:58 Intake and Output: 08/20/18 08/20/18 06:59 18:59 Intake Total 300 580 Output Total 800 Balance 300 -220 - Medications Medications: Current Medications Amlodipine Besylate (Norvasc) 10 mg PO DAILY [facility] Last Admin: 08/20/18 10:21 Dose: 10 mg Enoxaparin Sodium (Lovenox) 30 mg SC DAILY [facility] Last Admin: 08/20/18 10:20 Dose: 30 mg Furosemide (Lasix) 20 mg PO DAILY [facility] Last Admin: 08/20/18 10:21 Dose: 20 mg Lidocaine (Lidoderm) 1 ea TD DAILY [facility] Last Admin: 08/20/18 10:19 Dose: 1 ea Losartan Potassium (Cozaar) 100 mg PO DAILY [facility] Last Admin: 08/20/18 10:20 Dose: 100 mg Mupirocin (Bactroban Ointment) 0 gm TOP BID [facility] Last Admin: 08/20/18 10:20 Dose: 1 applic Pantoprazole Sodium (Protonix Ec Tab) 40 mg PO DAILY [facility] Last Admin: 08/20/18 10:20 Dose: 40 mg - Labs Labs: 08/18/18 16:53 08/18/18 16:53 PT 14.1 SECONDS (9.7-12.2) H 08/15/18 07:59 INR 1.3 08/15/18 07:59 APTT 33 SECONDS (21-34) 08/15/18 07:59 - Constitutional Appears: Non-toxic - Head Exam Head Exam: ATRAUMATIC - Eye Exam Eye Exam: Normal appearance Pupil Exam: NORMAL ACCOMODATION - ENT Exam ENT Exam: Mucous Membranes Moist - Neck Exam Neck Exam: Full ROM - Respiratory Exam Respiratory Exam: Decreased Breath Sounds - Cardiovascular Exam Cardiovascular Exam: REGULAR RHYTHM - GI/Abdominal Exam GI & Abdominal Exam: Normal Bowel Sounds - Exam Exam: NORMAL INSPECTION Bimanual exam: NORMAL BIMANUAL EXAM - Extremities Exam Extremities Exam: Normal Inspection - Neurological Exam Neurological Exam: Alert, Awake, Normal Gait, Oriented x3 - Psychiatric Exam Psychiatric exam: Normal Affect - Skin Skin Exam: Normal Color Assessment and Plan - Assessment and Plan (Free Text) Assessment: bilateral pleural efusions continu as ordered await rest of results Plan: as ordered
[2018-08-20 20:20] LABS: URINE 24 HOUR TOTAL PROTEIN 258.5 mg/24hr (42-225)
--- NOTE | 2018-08-20 23:32 | PN ---
DATE: 08/20/2018 SUBJECTIVE: The patient is mildly short of breath. He denies any retrosternal chest pain. PHYSICAL EXAMINATION: VITAL SIGNS: Blood pressure 130/83, heart rate 91, temperature 99, and respirations 20. HEENT: Normocephalic. CHEST: Absent breath sounds over the bases. HEART: Heart sounds regular. EXTREMITIES: 1+ pitting edema. LABORATORY DATA: Rheumatoid factor is negative. Blood culture is negative after four days. Today's chest x-ray report, interval mild improved aeration in the left lower lobe with residual presumptive pneumonia. Suspect atelectasis/pneumonia in the right lower lobe. Small effusions. ASSESSMENT: 1. Bilateral pleural effusion, status post thoracocentesis. 2. Peripheral edema. 3. Hypoalbuminemia. 4. Pneumonia. 5. Mild pulmonary hypertension. RECOMMENDATIONS: Discontinue . Continue Cozaar at 100 mg daily, Lasix 20 mg p.o. once a day, Lovenox 30 mg subcutaneous once a day, Norvasc at 10 mg once a day. Both IV Zithromax and IV Rocephin were discontinued today. A 24-hour urinary protein collection is started. Kamari Jalloh MD
[2018-08-21 07:17] LABS: BASO # 0.1 K/uL (0.0-0.2); BASO % 0.9 % (0.0-2.0); EOS # 0.2 K/uL (0.0-0.7); EOS % 1.7 % (0.0-4.0); HEMOGLOBIN 12.2 g/dL (12.0-18.0); LYMPH # 1.1 K/uL (1.0-4.3); LYMPH % 8.8 % (20.0-40.0); MEAN CELL VOLUME 86.1 fL (80.0-94.0); MEAN CORPUSCULAR HEMOGLOBIN 29.7 pg (27.0-31.0); MEAN CORPUSCULAR HGB CONC 34.5 g/dL (33.0-37.0); MONO # 1.3 K/uL (0.0-0.8); MONO % 10.7 % (0.0-10.0); NEUT # 9.3 K/uL (1.8-7.0); NEUT % 77.9 % (50.0-75.0); PLATELET COUNT 748 K/uL (130-400); RBC 4.12 Mil/uL (4.40-5.90); WHITE BLOOD COUNT 11.9 K/uL (4.8-10.8)
[2018-08-21 07:36] LABS: TOTAL PROTEIN PLEURAL FLUID 3.6 g/dL
[2018-08-21 07:38] LABS: BLOOD UREA NITROGEN 11 mg/dL (9-20); CALCIUM 8.7 mg/dl (8.6-10.4); GFR NON-AFRICAN AMERICAN > 60
[2018-08-21 08:46] LABS: EOSINOPHIL 2 % (0-4); LYMPHOCYTE 9 % (20-40); MONOCYTE 8 % (0-10); TOTAL CELLS COUNTED 100
[2018-08-21 08:47] LABS: NEUTROPHIL 81 % (50-75); PLATELET ESTIMATE MARKEDLY INCREASED (NORMAL)
[2018-08-21] MEDS: Pantoprazole 40 mg EC Tab PO SCH (10:44)
[2018-08-21] MEDS: Lidocaine 5% Patch TD SCH (10:45)
[2018-08-21] MEDS: Enoxaparin 30 mg Syringe SC SCH (10:45)
--- NOTE | 2018-08-21 12:24 | CP.PCM.PN ---
<Paty Davila - Last Filed: 08/21/18 14:25> Subjective - Date & Time of Evaluation Date of Evaluation: 08/21/18 Time of Evaluation: 12:22 - Subjective Subjective: Pulmonary progress note for Dr. Abraham's service. Patient seen and examined at armchair. Patient complains of mild SOB and cough. He states cough is worse in the morning and improves with ambulation. Patient denies chest pain, chills, nausea, vomiting, constipation and diarrhea. Objective - Vital Signs/Intake and Output Vital Signs (last 24 hours): Temp Pulse Resp BP Pulse Ox 99.1 F 107 H 20 137/88 93 L 08/21/18 07:58 08/21/18 07:58 08/21/18 07:58 08/21/18 10:45 08/21/18 07:58 Intake and Output: 08/21/18 08/21/18 06:59 18:59 Intake Total 1160 Balance 1160 - Medications Medications: Current Medications Amlodipine Besylate (Norvasc) 10 mg PO DAILY [facility] Last Admin: 08/21/18 10:44 Dose: 10 mg Enoxaparin Sodium (Lovenox) 30 mg SC DAILY [facility] Last Admin: 08/21/18 10:45 Dose: 30 mg Furosemide (Lasix) 20 mg PO DAILY [facility] Last Admin: 08/21/18 10:45 Dose: 20 mg Lidocaine (Lidoderm) 1 ea TD DAILY [facility] Last Admin: 08/21/18 10:45 Dose: 1 ea Losartan Potassium (Cozaar) 100 mg PO DAILY [facility] Last Admin: 08/21/18 10:45 Dose: 100 mg Mupirocin (Bactroban Ointment) 0 gm TOP BID [facility] Last Admin: 08/20/18 17:53 Dose: 1 applic Pantoprazole Sodium (Protonix Ec Tab) 40 mg PO DAILY [facility] Last Admin: 08/21/18 10:44 Dose: 40 mg - Labs Labs: 08/21/18 06:55 08/21/18 06:55 PT 14.1 SECONDS (9.7-12.2) H 08/15/18 07:59 INR 1.3 08/15/18 07:59 APTT 33 SECONDS (21-34) 08/15/18 07:59 - Constitutional Appears: Well, Non-toxic, No Acute Distress - Head Exam Head Exam: NORMAL INSPECTION - Eye Exam Eye Exam: EOMI, Normal appearance Pupil Exam: NORMAL ACCOMODATION - ENT Exam ENT Exam: Mucous Membranes Moist, Normal Exam - Neck Exam Neck Exam: Normal Inspection - Respiratory Exam Respiratory Exam: Decreased Breath Sounds, Rales, NORMAL BREATHING PATTERN. absent: Rhonchi, Wheezes Additional comments: decreased breath sounds and mild rales at lung bases. - Cardiovascular Exam Cardiovascular Exam: REGULAR RHYTHM - GI/Abdominal Exam GI & Abdominal Exam: Normal Bowel Sounds - Extremities Exam Extremities Exam: Pedal Edema Additional comments: +2 pedal edema bilaterally - Neurological Exam Neurological Exam: Oriented x3 - Psychiatric Exam Psychiatric exam: Normal Mood - Skin Skin Exam: Intact, Normal Color Assessment and Plan - Assessment and Plan (Free Text) Assessment: 62 year old Male with a PMH of HTN. Pulmonary consulted for SOB secondary to pleural effusions. Plan: Bilateral Plural Effusions Thoracocentesis on 08/18 Repeat CXR on 08/20 showed mild improved aeration in L lower lobe. Atelectasis/ pneumonia in R lower lobe. Small effusions. Plueral effusion analysis showed: cloudy appearance, total cell count 100, WBC 1668, albumin pending, Glucose 116, LDH 491, cholesterol pending, triglycerides 20 WBC is trending down Light's criteria indicated exudative plueral effusion (pleural Total protein/ serum total protein is > 0.5) Ordered ABG shock panel Duonebs were D/C Azithromycin and ceftriaxone were D/C per primary team Recommend levaquin 500mg for dc Continue management per primary team PGY-1 Paty Davila Case d/w Dr. Abraham <Chaitanya Abraham - Last Filed: 08/21/18 15:30> Objective - Vital Signs/Intake and Output Vital Signs (last 24 hours): Temp Pulse Resp BP Pulse Ox 99.1 F 107 H 20 137/88 93 L 08/21/18 07:58 08/21/18 07:58 08/21/18 07:58 08/21/18 10:45 08/21/18 07:58 Intake and Output: 08/21/18 08/21/18 06:59 18:59 Intake Total 1160 450 Balance 1160 450 - Medications Medications: Current Medications Amlodipine Besylate (Norvasc) 10 mg PO DAILY [facility] Last Admin: 08/21/18 10:44 Dose: 10 mg Enoxaparin Sodium (Lovenox) 30 mg SC DAILY [facility] Last Admin: 08/21/18 10:45 Dose: 30 mg Furosemide (Lasix) 20 mg PO DAILY [facility] Last Admin: 08/21/18 10:45 Dose: 20 mg Azithromycin 500 mg/ Sodium (Chloride) 250 mls @ 167 mls/hr IVPB Q24H [facility]; Protocol Lidocaine (Lidoderm) 1 ea TD DAILY [facility] Last Admin: 08/21/18 10:45 Dose: 1 ea Losartan Potassium (Cozaar) 100 mg PO DAILY [facility] Last Admin: 08/21/18 10:45 Dose: 100 mg Mupirocin (Bactroban Ointment) 0 gm TOP BID [facility] Last Admin: 08/21/18 10:50 Dose: 1 applic Pantoprazole Sodium (Protonix Ec Tab) 40 mg PO DAILY [facility] Last Admin: 08/21/18 10:44 Dose: 40 mg - Labs Labs: 08/21/18 06:55 08/21/18 06:55 PT 14.1 SECONDS (9.7-12.2) H 08/15/18 07:59 INR 1.3 08/15/18 07:59 APTT 33 SECONDS (21-34) 08/15/18 07:59 Attending/Attestation - Attestation I have personally seen and examined this patient.: Yes I have fully participated in the care of the patient.: Yes I have reviewed all pertinent clinical information, including history, physical exam and plan: Yes Notes (Text): 08/21/18 15:28 Patient seen and examined Status post thoracentesis and pleural fluid consistent with exudate Patient clinically much improved and completely asymptomatic Okay to discharge on p.o. antibiotics Follow-up in the office for repeat chest x-ray
--- NOTE | 2018-08-21 12:44 | CP.PCM.PN ---
Subjective - Date & Time of Evaluation Date of Evaluation: 08/21/18 Time of Evaluation: 12:42 - Subjective Subjective: pt feels beter ambulatery breathing beter has wbc hi but improving Objective - Vital Signs/Intake and Output Vital Signs (last 24 hours): Temp Pulse Resp BP Pulse Ox 99.1 F 107 H 20 137/88 93 L 08/21/18 07:58 08/21/18 07:58 08/21/18 07:58 08/21/18 10:45 08/21/18 07:58 Intake and Output: 08/21/18 08/21/18 06:59 18:59 Intake Total 1160 Balance 1160 - Medications Medications: Current Medications Amlodipine Besylate (Norvasc) 10 mg PO DAILY [facility] Last Admin: 08/21/18 10:44 Dose: 10 mg Enoxaparin Sodium (Lovenox) 30 mg SC DAILY [facility] Last Admin: 08/21/18 10:45 Dose: 30 mg Furosemide (Lasix) 20 mg PO DAILY [facility] Last Admin: 08/21/18 10:45 Dose: 20 mg Lidocaine (Lidoderm) 1 ea TD DAILY [facility] Last Admin: 08/21/18 10:45 Dose: 1 ea Losartan Potassium (Cozaar) 100 mg PO DAILY [facility] Last Admin: 08/21/18 10:45 Dose: 100 mg Mupirocin (Bactroban Ointment) 0 gm TOP BID [facility] Last Admin: 08/20/18 17:53 Dose: 1 applic Pantoprazole Sodium (Protonix Ec Tab) 40 mg PO DAILY [facility] Last Admin: 08/21/18 10:44 Dose: 40 mg - Labs Labs: 08/21/18 06:55 08/21/18 06:55 PT 14.1 SECONDS (9.7-12.2) H 08/15/18 07:59 INR 1.3 08/15/18 07:59 APTT 33 SECONDS (21-34) 08/15/18 07:59 - Constitutional Appears: Non-toxic - Head Exam Head Exam: ATRAUMATIC - Eye Exam Eye Exam: Normal appearance Pupil Exam: NORMAL ACCOMODATION - ENT Exam ENT Exam: Normal Exam - Neck Exam Neck Exam: Normal Inspection - Respiratory Exam Respiratory Exam: Clear to Ausculation Bilateral - Cardiovascular Exam Cardiovascular Exam: REGULAR RHYTHM - GI/Abdominal Exam GI & Abdominal Exam: Normal Bowel Sounds - Rectal Exam Rectal Exam: NORMAL INSPECTION - Exam Exam: NORMAL INSPECTION - Extremities Exam Extremities Exam: Normal Capillary Refill - Back Exam Back Exam: NORMAL INSPECTION - Neurological Exam Neurological Exam: Alert, Normal Gait, Oriented x3 - Psychiatric Exam Psychiatric exam: Normal Affect - Skin Skin Exam: Intact Assessment and Plan - Assessment and Plan (Free Text) Assessment: pnumonia improving pleural efusion await culture and cytology Plan: as per orderes
[2018-08-21] MEDS ORDERED: Azithromycin 500 MG in Sodium Chloride 0.9% 250 ML IVPB SCH (16:00)
--- NOTE | 2018-08-21 17:56 | PN ---
DATE: 08/21/2018 SUBJECTIVE: The patient is ambulatory. Leg swelling has improved after adequate diuresis. PHYSICAL EXAMINATION: VITAL SIGNS: Blood pressure 157/88, heart rate 107, temperature 99.1, and respirations 20. HEENT: Normocephalic. CHEST: Diminished breath sounds over the bases. HEART: S1 and S2 regular. ABDOMEN: Soft. EXTREMITIES: 1+ pitting edema. LABORATORY DATA: Today's hemoglobin and hematocrit 12.1 and 35.4, white count 11.9, and platelet count 748,000. Today's SMA-7: Sodium 131, potassium 4.1, chloride 95, CO2 of 27, glucose 105, BUN 11, and creatinine 0.5. A 24-hour urine protein is 258.5, which is not in the nephrotic range. ASSESSMENT: 1. Chest pain. The patient has normal coronary circulation. 2. Pneumonia. 3. Rule out pulmonary tuberculosis. 4. Hypoalbuminemia. 5. Mild pulmonary hypertension. 6. Bilateral pleural effusion status post thoracocentesis. RECOMMENDATIONS: Continue current Cozaar 100 mg once daily, Lasix 20 mg p.o. once a day, Lovenox 30 mg daily, and Norvasc 10 mg once a day. Discontinue dietary sodium restriction in view of hyponatremia. Kamari Jalloh MD
[2018-08-22 08:24] VITALS: BP 129/81; PULSE 109; TEMP 98.8; O2SAT 94
[2018-08-22] MEDS: Pantoprazole 40 mg EC Tab PO SCH (09:25)
[2018-08-22] MEDS: Lidocaine 5% Patch TD SCH (09:26)
[2018-08-22] MEDS: Enoxaparin 30 mg Syringe SC SCH (09:26)
--- NOTE | 2018-08-22 10:42 | CP.PCM.PN ---
Subjective - Date & Time of Evaluation Date of Evaluation: 08/22/18 Time of Evaluation: 10:39 - Subjective Subjective: feels gooid no pain no sob ready to go home Objective - Vital Signs/Intake and Output Vital Signs (last 24 hours): Temp Pulse Resp BP Pulse Ox 98.8 F 109 H 20 129/81 94 L 08/22/18 07:00 08/22/18 07:00 08/22/18 07:00 08/22/18 09:25 08/22/18 07:00 Intake and Output: 08/22/18 08/22/18 06:59 18:59 Intake Total 650 240 Balance 650 240 - Medications Medications: Current Medications Amlodipine Besylate (Norvasc) 10 mg PO DAILY [facility] Last Admin: 08/22/18 09:25 Dose: 10 mg Enoxaparin Sodium (Lovenox) 30 mg SC DAILY [facility] Last Admin: 08/22/18 09:26 Dose: 30 mg Furosemide (Lasix) 20 mg PO DAILY [facility] Last Admin: 08/22/18 09:25 Dose: 20 mg Azithromycin 500 mg/ Sodium (Chloride) 250 mls @ 167 mls/hr IVPB Q24H [facility]; Protocol Last Admin: 08/21/18 19:06 Dose: 167 mls/hr Lidocaine (Lidoderm) 1 ea TD DAILY [facility] Last Admin: 08/22/18 09:26 Dose: Not Given Losartan Potassium (Cozaar) 100 mg PO DAILY [facility] Last Admin: 08/22/18 09:25 Dose: 100 mg Mupirocin (Bactroban Ointment) 0 gm TOP BID [facility] Last Admin: 08/22/18 09:26 Dose: 1 applic Pantoprazole Sodium (Protonix Ec Tab) 40 mg PO DAILY [facility] Last Admin: 08/22/18 09:25 Dose: 40 mg - Labs Labs: 08/21/18 06:55 08/21/18 06:55 PT 14.1 SECONDS (9.7-12.2) H 08/15/18 07:59 INR 1.3 08/15/18 07:59 APTT 33 SECONDS (21-34) 08/15/18 07:59 - Head Exam Head Exam: ATRAUMATIC - Eye Exam Eye Exam: Normal appearance Pupil Exam: NORMAL ACCOMODATION - ENT Exam ENT Exam: Mucous Membranes Moist - Neck Exam Neck Exam: Full ROM - Respiratory Exam Respiratory Exam: NORMAL BREATHING PATTERN - Cardiovascular Exam Cardiovascular Exam: REGULAR RHYTHM - GI/Abdominal Exam GI & Abdominal Exam: Normal Bowel Sounds - Rectal Exam Rectal Exam: NORMAL INSPECTION - Exam Exam: NORMAL INSPECTION Speculum exam: NORMAL SPECULUM EXAM - Extremities Exam Extremities Exam: Normal Inspection - Back Exam Back Exam: NORMAL INSPECTION - Neurological Exam Neurological Exam: Normal Gait - Psychiatric Exam Psychiatric exam: Anxious - Skin Skin Exam: Normal Color Assessment and Plan - Assessment and Plan (Free Text) Assessment: s/p pleural efusion s/p pnumonia s/p chest pain improved Plan: will go home f/u by his md continu medications
--- NOTE | 2018-08-26 04:34 | DS ---
HOSPITAL COURSE: The patient presented to the emergency room and came in for admission on 08/16/2018. He was having chest pain, shortness of breath, and there was an ST elevation in the EKG. He was also having on chest x-ray some infiltrate and pleural effusion. He has temperature of 98, pulse of 75, blood pressure was 118/77, and pulse was okay. CBC was normal except white count was high, and he has chemistry okay. He was admitted and was followed by me. He was seen by pulmonary consultation by Dr. Abraham and his pleural effusion was significant, so he had thoracocentesis to take off this fluid, and after that he was able to breathe better, and he was less short of breath. His white count was still high, was continuously on the IV antibiotics, and he had Norvasc for hypertension and he was taking Lasix, losartan, and Cozaar for blood pressure and antacids. His white count was improving and he was less short of breath. The patient seemed to be improving after the thoracocentesis and there was no problem discharging him. His chest x-ray showed a lot of improvement on the pleural effusion and then the fluid was less, improved aeration of the left lower lobe with less residual pneumonia and atelectasis that was on last x-ray he had. MRSA was negative and there was no growth from the pleural fluid. So, he was discharged on 08/24/2018 to continue on antibiotics at home, to followup by his physicians. FINAL DIAGNOSES: 1. Acute chest pain, non-ST elevation myocardial infarction. 2. Pneumonia. 3. Pleural effusion. 4. Atelectasis. Mare Lackey MD
--- NOTE | 2018-08-26 20:10 | CATH ---
APPROVED REPORT Date of service: 08/15/2018 Procedure(s) performed: Cardiac catheterization HISTORY : The patient is a 62 year-old male with a history of . INDICATION The indication(s) include : abnormal ECG, Middle aged male whp presented with chest pain and abnormal EKG. Code heart was called. . CASE TECHNIQUE The patient was brought emergently to the Cardiac Catheterization Laboratory in a fasting state and was prepped and draped in a sterile manner. The right femoral groin was infiltrated with 2% Lidocaine subcutaneous anesthesia. A 6 F sheath was inserted into the right femoral artery without difficulty. Coronary angiography was performed using coronary diagnostic catheters. The left coronary system was accessed and visualized with a Diagnostic 6F JL4 catheter. The right coronary system was accessed and visualized with a Guided 6F JR catheter. The left ventricle was accessed and visualized with a Diagnostic 6F Pigtail catheter. Closure device was deployed with a 6 Fr Angioseal without any complications. Vessel Analysis The patient's coronary anatomy is left dominant. The left main coronary artery is a medium size vessel . The left main bifurcates to the left anterior descending and circumflex. The left anterior descending artery is a medium size vessel mid vessel Myocardial bridging. The circumflex artery is a medium size vessel free of disease. The right coronary artery is a medium size vessel with intimal irregularities. Left Ventricle The left ventricle is normal in size with normal contractility. The left ventricular ejection fraction is estimated to be 55%. The left ventricular end diastolic pressure is 15 mmHg. Conclusion Normal Corornaries. 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 Normal LV systolic function. Recommendations Cardiac Risk Reduction Program
== END 2018-08-22 12:53 | disposition home or self-care (01) | DRG 280 ==
LOC: C.ER 07:45 → C.9I 08:23 → OBSVTOIN 13:58 → C.5S 08-17 20:28 → C.3T 08-20 14:51
PROVIDERS: ADMIT Internal Medicine; ATTEND Internal Medicine
PROC: 4A023N7 Measurement of Cardiac Sampling and Pressure, Left Heart, Percutaneous Approach (ICD-10-PCS; principal; 2018-08-15)
PROC: B2151ZZ Fluoroscopy of Left Heart using Low Osmolar Contrast (ICD-10-PCS; 2018-08-15)
PROC: B2111ZZ Fluoroscopy of Multiple Coronary Arteries using Low Osmolar Contrast (ICD-10-PCS; 2018-08-15)
PROC: 0W993ZZ Drainage of Right Pleural Cavity, Percutaneous Approach (ICD-10-PCS; 2018-08-18)
PROC: BB4BZZZ Ultrasonography of Pleura (ICD-10-PCS; 2018-08-18)
DX: I21.4 Non-ST elevation (NSTEMI) myocardial infarction (principal); J18.1 Lobar pneumonia, unspecified organism; I31.3 Pericardial effusion (noninflammatory); J90 Pleural effusion, not elsewhere classified; J98.11 Atelectasis; Q24.5 Malformation of coronary vessels; I12.9 Hypertensive chronic kidney disease with stage 1 through stage 4 chronic kidney disease, or unspecified chronic kidney disease; N18.9 Chronic kidney disease, unspecified; I27.20 Pulmonary hypertension, unspecified; I77.810 Thoracic aortic ectasia; K21.9 Gastro-esophageal reflux disease without esophagitis; E88.09 Other disorders of plasma-protein metabolism, not elsewhere classified; F10.10 Alcohol abuse, uncomplicated; F17.200 Nicotine dependence, unspecified, uncomplicated; Z90.49 Acquired absence of other specified parts of digestive tract